=== PATIENT | female | born 1970 | race Caucasian/White ===

== ENCOUNTER 2017-04-21 11:51 | Inpatient (IN) | payer MEDICAID ==
[2017-04-21] MEDS ORDERED: SOLU-Medrol 125 MG VIAL IVP SCH (13:00)
[2017-04-21] MEDS ORDERED: PHENERGAN INJ 25 MG IV PRN (13:17)
[2017-04-21] MEDS ORDERED: ZOFRAN INJ 4 MG VIAL IVP PRN (13:17)
[2017-04-21] MEDS ORDERED: NS 1/2 1000 ML IV 1,000 ML IV ONE (13:23)
[2017-04-21] MEDS ORDERED: SALINE 3% 15 ML NEB TX ONE (13:27)
[2017-04-21] MEDS: NS 1/2 1000 ML IV 1,000 ML IV SCH (13:37)
[2017-04-21] MEDS: ROBITUSSIN DM PO SCH ×3 (13:37→21:11)
[2017-04-21] MEDS: ZOSYN VIAL 4.5 GM 4.5 GM in NS 100 ML IV + SPIKE MINIBAG* 100 ML IV SCH ×2 (13:38→21:11)
[2017-04-21] MEDS: TYLENOL 325 MG TAB PO PRN (13:40)
[2017-04-21 13:53] LABS: BASOPHILS # (AUTO) 0.1 X10^3/uL (0.0-0.1); BASOPHILS % (AUTO) 0.5 % (0.2-1.0); BLOOD UREA NITROGEN 12 mg/dL (7-18); CALCIUM 8.2 mg/dL (8.5-10.1); CARBON DIOXIDE 30.1 mmol/L (21-32); CHLORIDE 103 mmol/L (98-107); CREATININE 0.81 mg/dL (0.55-1.02); EOSINOPHILS # (AUTO) 0.2 x10^3/uL (0.0-0.2); EOSINOPHILS % (AUTO) 1.4 % (0.9-2.9); GLUCOSE 91 mg/dL (65-99); HEMATOCRIT 37.5 % (36.0-47.0); LYMPHOCYTES # (AUTO) 4.2 X10^3/uL (1.3-2.9); LYMPHOCYTES % (AUTO) 33.8 % (21.0-51.0); MEAN CORPUSCULAR HEMOGLOBIN 30.6 pg (27.0-34.0); MEAN CORPUSCULAR HGB CONC 34.7 g/dL (33.0-35.0); MEAN CORPUSCULAR VOLUME 88.2 fL (80.0-100.0); MEAN PLATELET VOLUME 7.8 fL (7.4-11.0); MONOCYTES # (AUTO) 1.1 x10^3/uL (0.3-0.8); MONOCYTES % (AUTO) 9.2 % (0.0-13.0); NEUTROPHILS # (AUTO) 6.8 x10^3/uL (2.2-4.8); NEUTROPHILS % (AUTO) 55.1 % (42.0-75.0); PLATELET COUNT 366 X10^3/uL (150.0-450.0); RED BLOOD COUNT 4.25 X10^6/uL (3.5-5.4); RED CELL DISTRIBUTION WIDTH 12.9 % (11.6-16.5); SODIUM 139 mmol/L (136-145); WHITE BLOOD COUNT 12.3 X10^3/uL (3.6-10.0); eGFR BLACK RACES > 60 (>60); eGFR NON BLACK RACES > 60 (>60)
--- NOTE | 2017-04-21 13:53 | DR.H&P ---
H&P - History & Physical for Day of: H&P Date: 04/21/17 - Chief Complaint Chief Complaint: fever, chills, weakness, cough cold congestion, wheezing - Allergies Allergies/Adverse Reactions: Allergies Allergy/AdvReac Type Severity Reaction Status Date / Time MS Sulfa Antibiotics Allergy Verified 07/22/16 21:13 [Sulfa Antibiotics] - History of Present Illness History of Present Illness: patient is a 46-year-old white female who was a direct admit from Dr. Bonilla's office this morning with the diagnosis of acute bronchitis rule out pneumonia. Patient failed outpatient treatment for bronchitis. Patient was previously treated with doxycycline by mouth and had a Rocephin injection and steroids 2 days of days without any improvement. Patient states she is using albuterol at home and continues with wheezing and shortness of breath. Patient has a past medical history of mild to moderate COPD, hypertension, and arthritis. Plan to admit for IV antibiotics rule out pneumonia with blood and sputum cultures and chest x-ray will repeat a.m. labs and administer respiratory therapy - Past Medical History Past Medical History: Anxiety, Diabetes, Dyslipidemia, Hypertension - Past Surgical History Surgical History: Cholecystectomy, Hysterectomy, Ortho Surgery, Other - Social History Does patient currently use any type of tobacco product: No Have you used tobacco products in the last 12 months: No Type of Tobacco Use: None Alcohol Use: None Drug Use: None - Review of Systems Constitutional: Fever, Chills, Weakness Eyes: No Symptoms Reported ENT: No Symptoms Reported Respiratory: Cough, Shortness of Breath, SOB with Excertion, Wheezing Cardiovascular: No Symptoms Reported Gastrointestinal: Nausea Musculoskeletal: Back Pain Skin: No Symptoms Reported Neurological: No Symptoms Reported - Physical Exam Vital Signs: Temperature 97.9 F Pulse Rate [Left Radial] 72 Pulse Rate 66 Respiratory Rate 20 Blood Pressure [Left Arm] 133/71 Blood Pressure 129/83 O2 Sat by Pulse Oximetry 97 Oriented: Normal Eyes: Normal Ear: Normal Nose: Discharge Throat: Dry Respiratory: Rhonchi Throughout, Wheezes Throughout Cardiovascular: Normal : Normal Auscultation: Bowel Sounds: Normal Palpation: Normal Tenderness: Epigastric Skin: Normal Musculoskeletal: Back:Lumbar Psychiatric: Anxiety Speech Pattern: Clear, Appropriate - Assessment/Plan (1) Bronchitis Status: Acute Plan: admit, follow pneumonia protocol, IV Zosyn and IV Zithromax. Patient reports an allergy allergy to fluoroquinolones. Solu-Medrol IV 80 every 8 hours 3 doses. Respiratory therapy, supplemental O2, IV and oral hydration, blood and sputum cultures on admission, repeat a.m. labs and chest x-ray (2) Depression Qualifiers: Depression Type: D Major depression recurrence: M Active/Remission status : A Major depression episode severity: M Psychotic features: P Trimester: T Status: Chronic Plan: resume home med monitor (3) GERD (gastroesophageal reflux disease) Qualifiers: Esophagitis presence: E Status: Chronic Plan: pepcid (4) Hyperlipidemia Qualifiers: Hyperlipidemia type: H Status: Chronic (5) Hypertension Qualifiers: Hypertension type: H Status: Chronic Plan: resume home meds
[2017-04-21] MEDS ORDERED: PATIENT'S HOME MEDICATION (Hydrocodone-Acetaminophen [Norco] 1 TAB) PO PRN (13:55)
[2017-04-21] MEDS ORDERED: POTASSIUM CHLORIDE LIQ 20 MEQ UDC PO PRN (14:19)
[2017-04-21] MEDS ORDERED: K-RIDER 10 MEQ/NS 100 ML 10 MEQ/100 ML BAG IV PRN (14:19)
[2017-04-21] MEDS ORDERED: K-LYTE EFFERVESCENT PO PRN (14:19)
[2017-04-21 14:26] LABS: ALANINE AMINOTRANSFERASE 24 Units/L (12-78); ALBUMIN 3.6 g/dL (3.4-5.0); ALKALINE PHOSPHATASE 77 Units/L (46-116); ASPARTATE AMINO TRANSFERASE 15 Units/L (15-37)
--- NOTE | 2017-04-21 14:48 | RAD ---
HISTORY: Cough, congestion Study: Chest two-view Comparison: 2015 Findings: The trachea is midline. The cardiac silhouette is unremarkable. The lungs are clear without focal infiltrate or effusion. The bony thorax is unremarkable. IMPRESSION: 1. No acute cardiopulmonary disease. Reported By:
[2017-04-21 15:10] VITALS: BMI 33.2
[2017-04-21] MEDS: NORCO 5/325 MG TAB PO PRN (15:10)
[2017-04-21] MEDS: K-DUR TAB 20 MEQ PO PRN (15:26)
[2017-04-21] MEDS ORDERED: SALINE 3% 15 ML NEB TX NEB ONE (15:28)
[2017-04-21] MEDS: DUONEB 0.5 MG/3 MG NEB SCH ×2 (16:12→20:13)
[2017-04-21] MEDS ORDERED: CITALOPRAM HYDROBROMIDE PO SCH (21:00)
[2017-04-21] MEDS ORDERED: PATIENT'S HOME MEDICATION (Lisinopril [Lisinopril] 1 TAB) PO SCH (21:00)
[2017-04-21] MEDS ORDERED: PATIENT'S HOME MEDICATION (Aspirin [Aspirin] 1 TAB) PO SCH (21:00)
[2017-04-21] MEDS: PROTONIX TAB 40 MG PO SCH (21:11)
[2017-04-21] MEDS: LIPITOR TAB 20 MG PO SCH (21:11)
[2017-04-21] MEDS: ASPIRIN EC 81 MG PO SCH (21:11)
[2017-04-21] MEDS: NEURONTIN CAP 300 MG PO SCH (23:10)
[2017-04-21] MEDS: DESYREL PO SCH (23:10)
[2017-04-21] MEDS: ZESTRIL TAB 10 MG PO SCH (23:11)
[2017-04-21] MEDS: NORVASC TAB 5 MG PO SCH (23:11)
[2017-04-21] MEDS: SOLU-Medrol 125 MG VIAL IVP SCH (23:14)
[2017-04-22] MEDS: DUONEB 0.5 MG/3 MG NEB SCH ×6 (00:43→20:23)
[2017-04-22] MEDS ORDERED: NS 1/2 1000 ML IV 1,000 ML IV ONE ×2 (02:35→11:13)
[2017-04-22] MEDS: NS 1/2 1000 ML IV 1,000 ML IV SCH ×2 (02:37→17:15)
[2017-04-22] MEDS: NEURONTIN CAP 300 MG PO SCH ×3 (05:20→21:07)
[2017-04-22] MEDS: ZOSYN VIAL 4.5 GM 4.5 GM in NS 100 ML IV + SPIKE MINIBAG* 100 ML IV SCH ×3 (05:20→21:16)
[2017-04-22 05:34] LABS: BASOPHILS % (AUTO) 0.2 % (0.2-1.0); HEMATOCRIT 36.9 % (36.0-47.0); HEMOGLOBIN 12.6 g/dL (12.0-16.0); LYMPHOCYTES # (AUTO) 1.4 X10^3/uL (1.3-2.9); LYMPHOCYTES % (AUTO) 7.4 % (21.0-51.0); MEAN CORPUSCULAR HEMOGLOBIN 30.4 pg (27.0-34.0); MEAN CORPUSCULAR HGB CONC 34.2 g/dL (33.0-35.0); MEAN CORPUSCULAR VOLUME 88.9 fL (80.0-100.0); MONOCYTES # (AUTO) 0.3 x10^3/uL (0.3-0.8); MONOCYTES % (AUTO) 1.8 % (0.0-13.0); NEUTROPHILS # (AUTO) 17.5 x10^3/uL (2.2-4.8); NEUTROPHILS % (AUTO) 90.6 % (42.0-75.0); PLATELET COUNT 369 X10^3/uL (150.0-450.0); RED BLOOD COUNT 4.15 X10^6/uL (3.5-5.4); RED CELL DISTRIBUTION WIDTH 12.7 % (11.6-16.5); WHITE BLOOD COUNT 19.3 X10^3/uL (3.6-10.0)
[2017-04-22 05:46] LABS: ALANINE AMINOTRANSFERASE 24 Units/L (12-78); ALBUMIN 3.4 g/dL (3.4-5.0); ALKALINE PHOSPHATASE 76 Units/L (46-116); ASPARTATE AMINO TRANSFERASE 11 Units/L (15-37); BLOOD UREA NITROGEN 8 mg/dL (7-18); CALCIUM 8.5 mg/dL (8.5-10.1); CARBON DIOXIDE 24.8 mmol/L (21-32); CHLORIDE 108 mmol/L (98-107); COR NA(FOR HYPERGLY) 145 mmol/L (136-145); CREATININE 0.83 mg/dL (0.55-1.02); GLUCOSE 143 mg/dL (65-99); SODIUM 144 mmol/L (136-145); TOTAL PROTEIN 6.9 g/dL (6.4-8.2); eGFR BLACK RACES > 60 (>60); eGFR NON BLACK RACES > 60 (>60)
[2017-04-22] MEDS: SOLU-Medrol 125 MG VIAL IVP SCH ×2 (05:59→21:06)
[2017-04-22 07:21] LABS: BAND NEUTROPHILS % 8 % (0-10); PLATELET MORPHOLOGY COMMENT NORMAL (NORMAL)
[2017-04-22] MEDS: ZITHROMAX INJ 500 MG VIAL 500 MG in NS 250 ML IV 250 ML IV SCH (09:34)
[2017-04-22] MEDS: CELEXA PO SCH (09:35)
[2017-04-22] MEDS: NORCO 5/325 MG TAB PO PRN (09:39)
[2017-04-22] MEDS: ROBITUSSIN DM PO SCH ×4 (09:40→21:08)
[2017-04-22 10:45] LABS: BILIRUBIN,URINE NEGATIVE (NEGATIVE); BLOOD/HEMOGLOBIN,URINE NEGATIVE (NEGATIVE); GLUCOSE, URINE 1+ (NEGATIVE); KETONES,URINE NEGATIVE (NEGATIVE); LEUKOCYTE ESTERASE ,URINE NEGATIVE (NEGATIVE); NITRITES,URINE NEGATIVE (NEGATIVE); PROTEIN,URINE NEGATIVE (NEGATIVE); UROBILINOGEN,URINE NORMAL (NORMAL)
[2017-04-22 10:47] LABS: APPEARANCE,URINE SLIGHTLY HAZY (CLEAR); COLOR,URINE YELLOW (YELLOW)
[2017-04-22 10:55] LABS: BACTERIA,URINE NEGATIVE /HPF (NEGATIVE); RBC,URINE NEGATIVE /HPF (NEGATIVE); SQUAMOUS EPITHELIAL CELL,UR RARE /HPF (NEGATIVE)
[2017-04-22] MEDS ORDERED: NEURONTIN CAP 300 MG PO SCH (14:00)
[2017-04-22] MEDS: K-DUR TAB 20 MEQ PO PRN (14:35)
[2017-04-22] MEDS ORDERED: DESYREL PO SCH (21:00)
[2017-04-22] MEDS: PEPCID 20 MG IV PREMIX* 20 MG/50 ML BAG IV SCH (21:07)
[2017-04-22] MEDS: PROTONIX TAB 40 MG PO SCH (21:07)
[2017-04-22] MEDS: ASPIRIN EC 81 MG PO SCH (21:08)
[2017-04-22] MEDS: LIPITOR TAB 20 MG PO SCH (21:08)
[2017-04-22] MEDS: NORVASC TAB 5 MG PO SCH (21:08)
[2017-04-22] MEDS: DESYREL PO SCH (21:08)
[2017-04-22] MEDS: ZESTRIL TAB 10 MG PO SCH (21:09)
[2017-04-23] MEDS: DUONEB 0.5 MG/3 MG NEB SCH ×6 (00:29→20:36)
[2017-04-23] MEDS: NEURONTIN CAP 300 MG PO SCH ×3 (05:25→21:36)
[2017-04-23] MEDS: ZOSYN VIAL 4.5 GM 4.5 GM in NS 100 ML IV + SPIKE MINIBAG* 100 ML IV SCH ×3 (05:26→21:39)
[2017-04-23] MEDS: NORCO 5/325 MG TAB PO PRN ×3 (05:28→21:36)
[2017-04-23 06:19] LABS: BASOPHILS % (AUTO) 0.2 % (0.2-1.0); HEMATOCRIT 33.4 % (36.0-47.0); HEMOGLOBIN 11.4 g/dL (12.0-16.0); LYMPHOCYTES # (AUTO) 1.6 X10^3/uL (1.3-2.9); MEAN CORPUSCULAR HEMOGLOBIN 30.5 pg (27.0-34.0); MEAN CORPUSCULAR HGB CONC 34.1 g/dL (33.0-35.0); MEAN CORPUSCULAR VOLUME 89.4 fL (80.0-100.0); MEAN PLATELET VOLUME 8.3 fL (7.4-11.0); MONOCYTES # (AUTO) 0.9 x10^3/uL (0.3-0.8); MONOCYTES % (AUTO) 3.9 % (0.0-13.0); NEUTROPHILS # (AUTO) 20.2 x10^3/uL (2.2-4.8); NEUTROPHILS % (AUTO) 88.9 % (42.0-75.0); PLATELET COUNT 352 X10^3/uL (150.0-450.0); RED BLOOD COUNT 3.73 X10^6/uL (3.5-5.4); RED CELL DISTRIBUTION WIDTH 13.2 % (11.6-16.5)
[2017-04-23 06:36] LABS: ALANINE AMINOTRANSFERASE 20 Units/L (12-78); ALBUMIN 3.1 g/dL (3.4-5.0); ALKALINE PHOSPHATASE 76 Units/L (46-116); ASPARTATE AMINO TRANSFERASE 11 Units/L (15-37); BLOOD UREA NITROGEN 9 mg/dL (7-18); CALCIUM 8.3 mg/dL (8.5-10.1); CARBON DIOXIDE 26.4 mmol/L (21-32); CHLORIDE 110 mmol/L (98-107); COR NA(FOR HYPERGLY) 146 mmol/L (136-145); CREATININE 0.66 mg/dL (0.55-1.02); GLUCOSE 122 mg/dL (65-99); SODIUM 145 mmol/L (136-145); TOTAL PROTEIN 6.3 g/dL (6.4-8.2); eGFR BLACK RACES > 60 (>60); eGFR NON BLACK RACES > 60 (>60)
[2017-04-23 06:37] LABS: WHITE BLOOD COUNT 22.7 X10^3/uL (3.6-10.0)
[2017-04-23 06:48] LABS: PLATELET MORPHOLOGY COMMENT NORMAL (NORMAL)
[2017-04-23] MEDS ORDERED: NS 1/2 1000 ML IV 1,000 ML IV ONE (08:31)
[2017-04-23] MEDS: NS 1/2 1000 ML IV 1,000 ML IV SCH (08:47)
[2017-04-23] MEDS: CELEXA PO SCH (08:47)
[2017-04-23] MEDS: SOLU-Medrol 125 MG VIAL IVP SCH ×2 (08:48→21:30)
[2017-04-23] MEDS: ZITHROMAX INJ 500 MG VIAL 500 MG in NS 250 ML IV 250 ML IV SCH (08:48)
[2017-04-23] MEDS: PEPCID 20 MG IV PREMIX* 20 MG/50 ML BAG IV SCH ×2 (08:48→21:30)
[2017-04-23] MEDS: ROBITUSSIN DM PO SCH ×4 (09:00→21:39)
[2017-04-23] MEDS: PROTONIX TAB 40 MG PO SCH (21:36)
[2017-04-23] MEDS: DESYREL PO SCH (21:36)
[2017-04-23] MEDS: ASPIRIN EC 81 MG PO SCH (21:36)
[2017-04-23] MEDS: LIPITOR TAB 20 MG PO SCH (21:36)
--- NOTE | 2017-04-23 21:44 | RAD ---
Chest PA and lateral Indication: Bronchitis. Cough. Comparison: April 21, 2017. Findings: There is no pneumothorax come effusion or consolidation. Heart size is normal. Impression: No acute chest process or change from the prior. Reported By:
[2017-04-24] MEDS: DUONEB 0.5 MG/3 MG NEB SCH ×6 (01:07→21:25)
[2017-04-24] MEDS: NS 1/2 1000 ML IV 1,000 ML IV SCH ×2 (05:05→12:13)
[2017-04-24] MEDS: NEURONTIN CAP 300 MG PO SCH ×3 (05:11→21:04)
[2017-04-24] MEDS: ZOSYN VIAL 4.5 GM 4.5 GM in NS 100 ML IV + SPIKE MINIBAG* 100 ML IV SCH ×3 (05:12→21:02)
[2017-04-24 05:45] LABS: ALANINE AMINOTRANSFERASE 22 Units/L (12-78); ALBUMIN 2.9 g/dL (3.4-5.0); ALKALINE PHOSPHATASE 65 Units/L (46-116); ASPARTATE AMINO TRANSFERASE 10 Units/L (15-37); BLOOD UREA NITROGEN 11 mg/dL (7-18); CALCIUM 8.5 mg/dL (8.5-10.1); CARBON DIOXIDE 29.5 mmol/L (21-32); CHLORIDE 109 mmol/L (98-107); COR CA(FOR HYPOALB) 9.4 mg/dL (8.5-10.1); COR NA(FOR HYPERGLY) 145 mmol/L (136-145); CREATININE 0.78 mg/dL (0.55-1.02); GLUCOSE 122 mg/dL (65-99); SODIUM 144 mmol/L (136-145); TOTAL PROTEIN 6.1 g/dL (6.4-8.2); eGFR BLACK RACES > 60 (>60); eGFR NON BLACK RACES > 60 (>60)
[2017-04-24 06:43] LABS: BASOPHILS % (AUTO) 0.2 % (0.2-1.0); HEMATOCRIT 35.1 % (36.0-47.0); HEMOGLOBIN 11.6 g/dL (12.0-16.0); MEAN CORPUSCULAR HEMOGLOBIN 30.1 pg (27.0-34.0); MEAN CORPUSCULAR HGB CONC 33.1 g/dL (33.0-35.0); MEAN CORPUSCULAR VOLUME 90.9 fL (80.0-100.0); MEAN PLATELET VOLUME 8.2 fL (7.4-11.0); MONOCYTES # (AUTO) 0.7 x10^3/uL (0.3-0.8); MONOCYTES % (AUTO) 3.4 % (0.0-13.0); NEUTROPHILS # (AUTO) 17.3 x10^3/uL (2.2-4.8); NEUTROPHILS % (AUTO) 86.4 % (42.0-75.0); PLATELET COUNT 364 X10^3/uL (150.0-450.0); RED BLOOD COUNT 3.86 X10^6/uL (3.5-5.4); RED CELL DISTRIBUTION WIDTH 13.3 % (11.6-16.5)
[2017-04-24 06:58] LABS: PLATELET MORPHOLOGY COMMENT NORMAL (NORMAL)
[2017-04-24] MEDS: NORCO 5/325 MG TAB PO PRN ×2 (08:10→16:03)
[2017-04-24] MEDS: ROBITUSSIN DM PO SCH ×4 (08:12→21:03)
[2017-04-24] MEDS: PEPCID 20 MG IV PREMIX* 20 MG/50 ML BAG IV SCH ×2 (08:12→21:03)
[2017-04-24] MEDS: CELEXA PO SCH (08:12)
[2017-04-24] MEDS: SOLU-Medrol 125 MG VIAL IVP SCH ×2 (08:13→21:04)
[2017-04-24] MEDS: TUSSIONEX PENNKINETIC SUSP PO PRN (13:17)
[2017-04-24] MEDS: TYLENOL 325 MG TAB PO PRN (13:18)
[2017-04-24] MEDS ORDERED: TORADOL 30 MG VIAL IVP STA (16:05)
[2017-04-24] MEDS ORDERED: BENADRYL INJ 50 MG VIAL IVP ONE (16:05)
[2017-04-24] MEDS ORDERED: NS 1/2 1000 ML IV 1,000 ML IV ONE (16:46)
--- NOTE | 2017-04-24 18:13 | PCM.PROG ---
Progress Note - Progress Note for Day of Date: 04/24/17 - Subjective Subjective: 46 WF ADMITTED ON MONDAY WITH COPD WITH AB. PT CONTINUES TO CO SEVERE COUGH WITH WHEEZING, UNABLE TO PRODUCE SPUTUM, WBC 20K THIS AM, DISCUSSED STEROIDS PROBABLE CAUSE, WILL ADD SMART VEST AND PULMICORT, IV SOLU MEDROL D/C'S. ENCOURAGE PO HYDRATION AMBUALTE PT - Past Medical Family Social History Allergies: Allergies Sulfa (Sulfonamide Antibiotics) Allergy (Verified 04/21/17 15:12) - Review of Systems ROS: No change since H&P - Vital Signs and I&O's Vital Signs: Temperature 97.6 F Pulse Rate [Right Brachial] 90 Pulse Rate [Left Radial] 94 Pulse Rate 100 Respiratory Rate 20 Blood Pressure [Right Arm] 117/64 Blood Pressure [Left Arm] 115/70 Blood Pressure 129/83 O2 Sat by Pulse Oximetry 98 Intake and Output: Intake & Output 04/22/17 04/23/17 04/24/17 04/25/17 11:59 11:59 11:59 11:59 Intake Total 2048 1976 2001 460 Output Total 300 Balance 2049 1676 2001 460 - Physical Exam Oriented: Normal Eyes: Normal Ear: Normal Nose: Discharge Throat: Dry Respiratory: Wheezes, Rhonchi Cardiovascular: Normal : Normal Auscultation: Bowel Sounds: Normal Tenderness: Epigastric Skin: Normal Musculoskeletal: Back:Lumbar Psychiatric: Anxiety Speech Pattern: Clear, Appropriate - Laboratory and Diagnostics Result Diagrams: 04/24/17 05:05 04/24/17 05:05 Labs: 04/21/17 13:34 Blood Blood Culture - Preliminary 04/21/17 13:26 Blood Blood Culture - Preliminary Laboratory WBC 20.0 X10^3/uL (3.6-10.0) H 04/24/17 05:05 RBC 3.86 X10^6/uL (3.5-5.4) 04/24/17 05:05 Hgb 11.6 g/dL (12.0-16.0) L 04/24/17 05:05 Hct 35.1 % (36.0-47.0) L 04/24/17 05:05 MCV 90.9 fL (80.0-100.0) 04/24/17 05:05 MCH 30.1 pg (27.0-34.0) 04/24/17 05:05 MCHC 33.1 g/dL (33.0-35.0) 04/24/17 05:05 RDW 13.3 % (11.6-16.5) 04/24/17 05:05 Plt Count 364 X10^3/uL (150.0-450.0) 04/24/17 05:05 Plt Count Comment Adequate (ADEQUATE) 04/24/17 05:05 MPV 8.2 fL (7.4-11.0) 04/24/17 05:05 Neut % 86.4 % (42.0-75.0) H 04/24/17 05:05 Lymph % 10.0 % (21.0-51.0) L 04/24/17 05:05 [place] % 3.4 % (0.0-13.0) 04/24/17 05:05 Eos % 0.0 % (0.9-2.9) L 04/24/17 05:05 Baso % 0.2 % (0.2-1.0) 04/24/17 05:05 Neut # 17.3 x10^3/uL (2.2-4.8) H 04/24/17 05:05 Lymph # 2.0 X10^3/uL (1.3-2.9) 04/24/17 05:05 [place] # 0.7 x10^3/uL (0.3-0.8) 04/24/17 05:05 Eos # 0.0 x10^3/uL (0.0-0.2) 04/24/17 05:05 Baso # 0.0 X10^3/uL (0.0-0.1) 04/24/17 05:05 Absolute Nucleated RBC 0.1 /100WBC 04/24/17 05:05 Total Counted 100 04/24/17 05:05 Neutrophils % (Manual) 85 % (39-76) H 04/24/17 05:05 Band Neutrophils % 8 % (0-10) 04/22/17 04:40 Lymphocytes % (Manual) 11 % (13-43) L 04/24/17 05:05 Monocytes % (Manual) 4 % (4-9) 04/24/17 05:05 Plt Morphology Comment Normal (NORMAL) 04/24/17 05:05 RBC Morphology Normal (NORMAL) 04/24/17 05:05 Sodium 144 mmol/L (136-145) 04/24/17 05:05 Corrected Sodium 145 mmol/L (136-145) 04/24/17 05:05 Potassium 4.4 mmol/L (3.5-5.1) 04/24/17 05:05 Chloride 109 mmol/L (98-107) H 04/24/17 05:05 Carbon Dioxide 29.5 mmol/L (21-32) 04/24/17 05:05 BUN 11 mg/dL (7-18) 04/24/17 05:05 Creatinine 0.78 mg/dL (0.55-1.02) 04/24/17 05:05 Est GFR (MDRD) Af Amer > 60 (>60) 04/24/17 05:05 Est GFR (MDRD) Non-Af > 60 (>60) 04/24/17 05:05 Glucose 122 mg/dL (65-99) H 04/24/17 05:05 Calcium 8.5 mg/dL (8.5-10.1) 04/24/17 05:05 Corrected Calcium 9.4 mg/dL (8.5-10.1) 04/24/17 05:05 Total Bilirubin 0.10 mg/dL (0.2-1.0) L 04/24/17 05:05 AST 10 Units/L (15-37) L 04/24/17 05:05 ALT 22 Units/L (12-78) 04/24/17 05:05 Alkaline Phosphatase 65 Units/L (46-116) 04/24/17 05:05 Total Protein 6.1 g/dL (6.4-8.2) L 04/24/17 05:05 Albumin 2.9 g/dL (3.4-5.0) L 04/24/17 05:05 Globulin 3.2 g/dL (2.5-4.5) 04/24/17 05:05 Albumin/Globulin Ratio 0.9 Ratio (1.1-2.1) L 04/24/17 05:05 Specimen Type Clean catch urine 04/22/17 10:37 Urine Color Yellow (YELLOW) 04/22/17 10:37 Urine Appearance Slightly hazy (CLEAR) 04/22/17 10:37 Urine pH 6.0 (5.0 - 8.0) 04/22/17 10:37 Ur Specific [place] 1.020 (1.000-1.030) 04/22/17 10:37 Urine Protein Negative (NEGATIVE) 04/22/17 10:37 Urine Glucose (UA) 1+ (NEGATIVE) 04/22/17 10:37 Urine Ketones Negative (NEGATIVE) 04/22/17 10:37 Urine Occult Blood Negative (NEGATIVE) 04/22/17 10:37 Urine Nitrite Negative (NEGATIVE) 04/22/17 10:37 Urine Bilirubin Negative (NEGATIVE) 04/22/17 10:37 Urine Urobilinogen Normal (NORMAL) 04/22/17 10:37 Ur Leukocyte Esterase Negative (NEGATIVE) 04/22/17 10:37 Urine RBC Negative /HPF (NEGATIVE) 04/22/17 10:37 Urine WBC Rare /HPF (NEGATIVE) 04/22/17 10:37 Ur Squamous Epith Cells Rare /HPF (NEGATIVE) 04/22/17 10:37 Urine Bacteria Negative /HPF (NEGATIVE) 04/22/17 10:37 Ur Culture Indicated? No/not indicated 04/22/17 10:37 - Plan (1) Bronchitis Status: Acute Plan: SPUTUM COLLECTION, RESP CARE, SUPPLEMENTAL O2. IV ATBX, PULMICORT AND SMART VEST. REPEAT AM LABS (2) Depression Status: Chronic Qualifiers: Depression Type: D Major depression recurrence: M Active/Remission status : A Major depression episode severity: M Psychotic features: P Trimester: T Plan: resume home med monitor (3) GERD (gastroesophageal reflux disease) Status: Chronic Qualifiers: Esophagitis presence: E Plan: pepcid (4) Hyperlipidemia Status: Chronic Qualifiers: Hyperlipidemia type: H (5) Hypertension Status: Chronic Qualifiers: Hypertension type: H Plan: resume home meds
[2017-04-24] MEDS: PROTONIX TAB 40 MG PO SCH (21:04)
[2017-04-24] MEDS: LIPITOR TAB 20 MG PO SCH (21:04)
[2017-04-24] MEDS: ASPIRIN EC 81 MG PO SCH (21:04)
[2017-04-24] MEDS: DESYREL PO SCH (21:04)
[2017-04-24] MEDS: PULMICORT NEB TX 0.5 MG NEB SCH (21:25)
[2017-04-24] MEDS: NORCO 10/325 TAB PO PRN (22:43)
[2017-04-25] MEDS: DUONEB 0.5 MG/3 MG NEB SCH ×6 (01:14→20:16)
[2017-04-25] MEDS: NS 1/2 1000 ML IV 1,000 ML IV SCH ×2 (02:33→16:32)
[2017-04-25] MEDS: ZOSYN VIAL 4.5 GM 4.5 GM in NS 100 ML IV + SPIKE MINIBAG* 100 ML IV SCH ×3 (05:45→21:23)
[2017-04-25] MEDS: NEURONTIN CAP 300 MG PO SCH ×3 (05:45→21:24)
[2017-04-25 06:02] LABS: BASOPHILS % (AUTO) 0.1 % (0.2-1.0); HEMATOCRIT 34.3 % (36.0-47.0); HEMOGLOBIN 11.6 g/dL (12.0-16.0); LYMPHOCYTES # (AUTO) 1.7 X10^3/uL (1.3-2.9); LYMPHOCYTES % (AUTO) 9.6 % (21.0-51.0); MEAN CORPUSCULAR HEMOGLOBIN 30.6 pg (27.0-34.0); MEAN CORPUSCULAR HGB CONC 33.9 g/dL (33.0-35.0); MEAN CORPUSCULAR VOLUME 90.3 fL (80.0-100.0); MONOCYTES # (AUTO) 0.8 x10^3/uL (0.3-0.8); MONOCYTES % (AUTO) 4.6 % (0.0-13.0); NEUTROPHILS # (AUTO) 15.3 x10^3/uL (2.2-4.8); NEUTROPHILS % (AUTO) 85.7 % (42.0-75.0); PLATELET COUNT 365 X10^3/uL (150.0-450.0); RED BLOOD COUNT 3.79 X10^6/uL (3.5-5.4); RED CELL DISTRIBUTION WIDTH 13.4 % (11.6-16.5); WHITE BLOOD COUNT 17.9 X10^3/uL (3.6-10.0)
[2017-04-25 06:05] LABS: ALANINE AMINOTRANSFERASE 23 Units/L (12-78); ALBUMIN 2.8 g/dL (3.4-5.0); ALKALINE PHOSPHATASE 68 Units/L (46-116); ASPARTATE AMINO TRANSFERASE 9 Units/L (15-37); BLOOD UREA NITROGEN 15 mg/dL (7-18); CARBON DIOXIDE 29.3 mmol/L (21-32); CHLORIDE 107 mmol/L (98-107); COR NA(FOR HYPERGLY) 144 mmol/L (136-145); CREATININE 0.79 mg/dL (0.55-1.02); GLUCOSE 148 mg/dL (65-99); SODIUM 143 mmol/L (136-145); TOTAL PROTEIN 5.9 g/dL (6.4-8.2); eGFR BLACK RACES > 60 (>60); eGFR NON BLACK RACES > 60 (>60)
[2017-04-25 06:50] LABS: BAND NEUTROPHILS % 3 % (0-10); PLATELET MORPHOLOGY COMMENT NORMAL (NORMAL)
[2017-04-25] MEDS: CELEXA PO SCH (08:37)
[2017-04-25] MEDS: ROBITUSSIN DM PO SCH ×4 (08:38→21:25)
[2017-04-25] MEDS: PEPCID 20 MG IV PREMIX* 20 MG/50 ML BAG IV SCH ×2 (08:38→21:23)
[2017-04-25] MEDS: SOLU-Medrol 125 MG VIAL IVP SCH ×2 (08:38→21:25)
[2017-04-25] MEDS: PULMICORT NEB TX 0.5 MG NEB SCH ×2 (09:31→20:16)
[2017-04-25] MEDS: NORCO 10/325 TAB PO PRN ×2 (13:30→21:25)
[2017-04-25] MEDS ORDERED: NS 1/2 1000 ML IV 1,000 ML IV ONE (16:29)
--- NOTE | 2017-04-25 19:32 | PCM.PROG ---
Progress Note - Progress Note for Day of Date: 04/25/17 - Subjective Subjective: 46 WF ADMITTED ON MONDAY WITH COPD WITH AB. PT CONTINUES TO CO SEVERE COUGH WITH WHEEZING, SPUTUM COLLECTED, WBC IMPROVING,. ENCOURAGE PO HYDRATION AMBUALTE PT - Past Medical Family Social History Past Med/Fam/Surg Hx: No changes since H&P Allergies: Allergies Sulfa (Sulfonamide Antibiotics) Allergy (Verified 04/21/17 15:12) - Review of Systems ROS: No change since H&P - Vital Signs and I&O's Vital Signs: Temperature 98.3 F Pulse Rate [Right Brachial] 86 Pulse Rate [Left Radial] 89 Pulse Rate 92 Respiratory Rate 20 Blood Pressure [Right Arm] 119/59 Blood Pressure [Left Arm] 129/74 Blood Pressure 129/83 O2 Sat by Pulse Oximetry 98 Intake and Output: Intake & Output 04/23/17 04/24/17 04/25/17 04/26/17 11:59 11:59 11:59 11:59 Intake Total 1976 2001 1484 920 Output Total 300 Balance 1676 2001 1484 920 - Physical Exam Oriented: Normal Eyes: Normal Ear: Normal Nose: Discharge Throat: Dry Respiratory: Wheezes, Rhonchi Cardiovascular: Normal : Normal Auscultation: Bowel Sounds: Normal Tenderness: Epigastric Skin: Normal Musculoskeletal: Back:Lumbar Psychiatric: Anxiety Speech Pattern: Clear, Appropriate - Laboratory and Diagnostics Result Diagrams: 04/25/17 04:05 04/25/17 04:05 Labs: 04/24/17 21:45 Sputum - Expectorated Sputum Sputum Culture - Preliminary 04/24/17 21:45 Sputum - Expectorated Sputum - Final 04/21/17 13:34 Blood Blood Culture - Preliminary 04/21/17 13:26 Blood Blood Culture - Preliminary Laboratory WBC 17.9 X10^3/uL (3.6-10.0) H 04/25/17 04:05 RBC 3.79 X10^6/uL (3.5-5.4) 04/25/17 04:05 Hgb 11.6 g/dL (12.0-16.0) L 04/25/17 04:05 Hct 34.3 % (36.0-47.0) L 04/25/17 04:05 MCV 90.3 fL (80.0-100.0) 04/25/17 04:05 MCH 30.6 pg (27.0-34.0) 04/25/17 04:05 MCHC 33.9 g/dL (33.0-35.0) 04/25/17 04:05 RDW 13.4 % (11.6-16.5) 04/25/17 04:05 Plt Count 365 X10^3/uL (150.0-450.0) 04/25/17 04:05 Plt Count Comment Adequate (ADEQUATE) 04/25/17 04:05 MPV 8.0 fL (7.4-11.0) 04/25/17 04:05 Neut % 85.7 % (42.0-75.0) H 04/25/17 04:05 Lymph % 9.6 % (21.0-51.0) L 04/25/17 04:05 [place] % 4.6 % (0.0-13.0) 04/25/17 04:05 Eos % 0.0 % (0.9-2.9) L 04/25/17 04:05 Baso % 0.1 % (0.2-1.0) L 04/25/17 04:05 Neut # 15.3 x10^3/uL (2.2-4.8) H 04/25/17 04:05 Lymph # 1.7 X10^3/uL (1.3-2.9) 04/25/17 04:05 [place] # 0.8 x10^3/uL (0.3-0.8) 04/25/17 04:05 Eos # 0.0 x10^3/uL (0.0-0.2) 04/25/17 04:05 Baso # 0.0 X10^3/uL (0.0-0.1) 04/25/17 04:05 Absolute Nucleated RBC 0.0 /100WBC 04/25/17 04:05 Total Counted 100 04/25/17 04:05 Neutrophils % (Manual) 81 % (39-76) H 04/25/17 04:05 Band Neutrophils % 3 % (0-10) 04/25/17 04:05 Lymphocytes % (Manual) 12 % (13-43) L 04/25/17 04:05 Monocytes % (Manual) 4 % (4-9) 04/25/17 04:05 Plt Morphology Comment Normal (NORMAL) 04/25/17 04:05 RBC Morphology Normal (NORMAL) 04/25/17 04:05 Sodium 143 mmol/L (136-145) 04/25/17 04:05 Corrected Sodium 144 mmol/L (136-145) 04/25/17 04:05 Potassium 3.8 mmol/L (3.5-5.1) 04/25/17 04:05 Chloride 107 mmol/L (98-107) 04/25/17 04:05 Carbon Dioxide 29.3 mmol/L (21-32) 04/25/17 04:05 BUN 15 mg/dL (7-18) 04/25/17 04:05 Creatinine 0.79 mg/dL (0.55-1.02) 04/25/17 04:05 Est GFR (MDRD) Af Amer > 60 (>60) 04/25/17 04:05 Est GFR (MDRD) Non-Af > 60 (>60) 04/25/17 04:05 Glucose 148 mg/dL (65-99) H 04/25/17 04:05 Calcium 8.0 mg/dL (8.5-10.1) L 04/25/17 04:05 Corrected Calcium 9.0 mg/dL (8.5-10.1) 04/25/17 04:05 Total Bilirubin 0.20 mg/dL (0.2-1.0) 04/25/17 04:05 AST 9 Units/L (15-37) L 04/25/17 04:05 ALT 23 Units/L (12-78) 04/25/17 04:05 Alkaline Phosphatase 68 Units/L (46-116) 04/25/17 04:05 Total Protein 5.9 g/dL (6.4-8.2) L 04/25/17 04:05 Albumin 2.8 g/dL (3.4-5.0) L 04/25/17 04:05 Globulin 3.1 g/dL (2.5-4.5) 04/25/17 04:05 Albumin/Globulin Ratio 0.9 Ratio (1.1-2.1) L 04/25/17 04:05 Specimen Type Clean catch urine 04/22/17 10:37 Urine Color Yellow (YELLOW) 04/22/17 10:37 Urine Appearance Slightly hazy (CLEAR) 04/22/17 10:37 Urine pH 6.0 (5.0 - 8.0) 04/22/17 10:37 Ur Specific [place] 1.020 (1.000-1.030) 04/22/17 10:37 Urine Protein Negative (NEGATIVE) 04/22/17 10:37 Urine Glucose (UA) 1+ (NEGATIVE) 04/22/17 10:37 Urine Ketones Negative (NEGATIVE) 04/22/17 10:37 Urine Occult Blood Negative (NEGATIVE) 04/22/17 10:37 Urine Nitrite Negative (NEGATIVE) 04/22/17 10:37 Urine Bilirubin Negative (NEGATIVE) 04/22/17 10:37 Urine Urobilinogen Normal (NORMAL) 04/22/17 10:37 Ur Leukocyte Esterase Negative (NEGATIVE) 04/22/17 10:37 Urine RBC Negative /HPF (NEGATIVE) 04/22/17 10:37 Urine WBC Rare /HPF (NEGATIVE) 04/22/17 10:37 Ur Squamous Epith Cells Rare /HPF (NEGATIVE) 04/22/17 10:37 Urine Bacteria Negative /HPF (NEGATIVE) 04/22/17 10:37 Ur Culture Indicated? No/not indicated 04/22/17 10:37 - Plan (1) Bronchitis Status: Acute Plan: SPUTUM PEDNING, RESP CARE, SUPPLEMENTAL O2. IV ATBX, PULMICORT AND SMART VEST. REPEAT AM LABS, DISCUSSED DC HOME ON MONDAY (2) Depression Status: Chronic Qualifiers: Depression Type: D Major depression recurrence: M Active/Remission status : A Major depression episode severity: M Psychotic features: P Trimester: T Plan: resume home med monitor (3) GERD (gastroesophageal reflux disease) Status: Chronic Qualifiers: Esophagitis presence: E Plan: pepcid (4) Hyperlipidemia Status: Chronic Qualifiers: Hyperlipidemia type: H (5) Hypertension Status: Chronic Qualifiers: Hypertension type: H Plan: resume home meds
[2017-04-25] MEDS: LIPITOR TAB 20 MG PO SCH (21:24)
[2017-04-25] MEDS: DESYREL PO SCH (21:24)
[2017-04-25] MEDS: ASPIRIN EC 81 MG PO SCH (21:24)
[2017-04-25] MEDS: PROTONIX TAB 40 MG PO SCH (21:24)
[2017-04-26] MEDS: DUONEB 0.5 MG/3 MG NEB SCH ×3 (00:52→09:15)
[2017-04-26] MEDS ORDERED: NS 1/2 1000 ML IV 1,000 ML IV ONE (05:38)
[2017-04-26 05:46] LABS: BASOPHILS # (AUTO) 0.1 X10^3/uL (0.0-0.1); BASOPHILS % (AUTO) 0.3 % (0.2-1.0); HEMATOCRIT 35.1 % (36.0-47.0); HEMOGLOBIN 11.7 g/dL (12.0-16.0); LYMPHOCYTES # (AUTO) 1.9 X10^3/uL (1.3-2.9); LYMPHOCYTES % (AUTO) 10.3 % (21.0-51.0); MEAN CORPUSCULAR HEMOGLOBIN 30.3 pg (27.0-34.0); MEAN CORPUSCULAR HGB CONC 33.5 g/dL (33.0-35.0); MEAN CORPUSCULAR VOLUME 90.7 fL (80.0-100.0); MEAN PLATELET VOLUME 8.2 fL (7.4-11.0); MONOCYTES # (AUTO) 0.8 x10^3/uL (0.3-0.8); MONOCYTES % (AUTO) 4.5 % (0.0-13.0); NEUTROPHILS # (AUTO) 15.3 x10^3/uL (2.2-4.8); NEUTROPHILS % (AUTO) 84.9 % (42.0-75.0); PLATELET COUNT 362 X10^3/uL (150.0-450.0); RED BLOOD COUNT 3.87 X10^6/uL (3.5-5.4); RED CELL DISTRIBUTION WIDTH 13.2 % (11.6-16.5)
[2017-04-26 05:53] LABS: ALANINE AMINOTRANSFERASE 24 Units/L (12-78); ALBUMIN 2.8 g/dL (3.4-5.0); ALKALINE PHOSPHATASE 70 Units/L (46-116); ASPARTATE AMINO TRANSFERASE 10 Units/L (15-37); BLOOD UREA NITROGEN 16 mg/dL (7-18); CALCIUM 8.1 mg/dL (8.5-10.1); CARBON DIOXIDE 31.6 mmol/L (21-32); CHLORIDE 108 mmol/L (98-107); COR CA(FOR HYPOALB) 9.1 mg/dL (8.5-10.1); COR NA(FOR HYPERGLY) 144 mmol/L (136-145); CREATININE 0.79 mg/dL (0.55-1.02); GLUCOSE 132 mg/dL (65-99); SODIUM 143 mmol/L (136-145); TOTAL PROTEIN 5.9 g/dL (6.4-8.2); eGFR BLACK RACES > 60 (>60); eGFR NON BLACK RACES > 60 (>60)
[2017-04-26] MEDS: NS 1/2 1000 ML IV 1,000 ML IV SCH (05:53)
[2017-04-26] MEDS: ZOSYN VIAL 4.5 GM 4.5 GM in NS 100 ML IV + SPIKE MINIBAG* 100 ML IV SCH ×2 (05:53→15:14)
[2017-04-26] MEDS: NEURONTIN CAP 300 MG PO SCH (05:53)
[2017-04-26 06:31] LABS: PLATELET MORPHOLOGY COMMENT NORMAL (NORMAL)
[2017-04-26] MEDS: PEPCID 20 MG IV PREMIX* 20 MG/50 ML BAG IV SCH (08:21)
[2017-04-26] MEDS: ROBITUSSIN DM PO SCH (08:21)
[2017-04-26] MEDS: CELEXA PO SCH (08:21)
[2017-04-26] MEDS: TUSSIONEX PENNKINETIC SUSP PO PRN (08:25)
[2017-04-26] MEDS: NORCO 10/325 TAB PO PRN (08:25)
[2017-04-26] MEDS: PULMICORT NEB TX 0.5 MG NEB SCH (09:15)
[2017-04-26 12:48] VITALS: BP 118/62
== END 2017-04-26 15:09 | disposition home or self-care (01) | DRG 203 ==
LOC: MED/SURG 11:51
PROVIDERS: ADMIT Internal Medicine; ATTEND Internal Medicine
DX: J20.9 Acute bronchitis, unspecified (principal); B95.62 Methicillin resistant Staphylococcus aureus infection as the cause of diseases classified elsewhere; K21.9 Gastro-esophageal reflux disease without esophagitis; E78.5 Hyperlipidemia, unspecified; I10 Essential (primary) hypertension
CPT/HCPCS: 36415; 71020; 80053; 81001; 84132; 85025; 87040; 87070; 87077; 87186; 87205; 94640; 94669; 94760; A4222; S0028; J0456; J1200; J1885; J2405; J2543; J2930; J7620; J7626

== ENCOUNTER 2017-05-02 16:02 | Observation (INO) | payer MEDICAID ==
[2017-05-02] MEDS ORDERED: NS 1000 ML 1,000 ML ONE (16:10)
[2017-05-02] MEDS: NS 1000 ML 1,000 ML IV SCH (16:20)
[2017-05-02] MEDS: ZOFRAN INJ 4 MG VIAL IVP PRN ×2 (16:22→22:28)
[2017-05-02] MEDS ORDERED: PEPCID 20 MG IV PREMIX* 20 MG/50 ML BAG IV ONE (16:30)
[2017-05-02] MEDS ORDERED: BENADRYL INJ 50 MG VIAL IVP ONE (16:30)
[2017-05-02 16:35] LABS: ABG BASE EXCESS 2.9 mmol/L (-2.0-2.0); ABG HCO3 24.8 mmol/L (22-26)
[2017-05-02] MEDS ORDERED: SOLU-Medrol 40 MG VIAL IVP ONE (16:35)
[2017-05-02 17:07] LABS: BASOPHILS # (AUTO) 0.1 X10^3/uL (0.0-0.1); BASOPHILS % (AUTO) 0.8 % (0.2-1.0); EOSINOPHILS # (AUTO) 0.5 x10^3/uL (0.0-0.2); EOSINOPHILS % (AUTO) 3.3 % (0.9-2.9); HEMATOCRIT 38.5 % (36.0-47.0); HEMOGLOBIN 13.3 g/dL (12.0-16.0); LYMPHOCYTES # (AUTO) 2.5 X10^3/uL (1.3-2.9); LYMPHOCYTES % (AUTO) 18.1 % (21.0-51.0); MEAN CORPUSCULAR HGB CONC 34.6 g/dL (33.0-35.0); MEAN CORPUSCULAR VOLUME 89.7 fL (80.0-100.0); MEAN PLATELET VOLUME 7.7 fL (7.4-11.0); MONOCYTES # (AUTO) 1.1 x10^3/uL (0.3-0.8); MONOCYTES % (AUTO) 8.1 % (0.0-13.0); NEUTROPHILS # (AUTO) 9.6 x10^3/uL (2.2-4.8); NEUTROPHILS % (AUTO) 69.7 % (42.0-75.0); PLATELET COUNT 398 X10^3/uL (150.0-450.0); RED BLOOD COUNT 4.29 X10^6/uL (3.5-5.4); RED CELL DISTRIBUTION WIDTH 13.3 % (11.6-16.5); WHITE BLOOD COUNT 13.8 X10^3/uL (3.6-10.0)
[2017-05-02 17:17] LABS: ALANINE AMINOTRANSFERASE 26 Units/L (12-78); ALBUMIN 3.6 g/dL (3.4-5.0); ALKALINE PHOSPHATASE 87 Units/L (46-116); ASPARTATE AMINO TRANSFERASE 14 Units/L (15-37); BLOOD UREA NITROGEN 16 mg/dL (7-18); CALCIUM 9.2 mg/dL (8.5-10.1); CHLORIDE 104 mmol/L (98-107); CREATININE 0.89 mg/dL (0.55-1.02); GLUCOSE 105 mg/dL (65-99); SODIUM 140 mmol/L (136-145); TOTAL PROTEIN 7.3 g/dL (6.4-8.2); eGFR BLACK RACES > 60 (>60); eGFR NON BLACK RACES > 60 (>60)
[2017-05-02] MEDS ORDERED: K-DUR TAB 20 MEQ PO PRN (17:24)
[2017-05-02] MEDS ORDERED: POTASSIUM CHLORIDE LIQ 20 MEQ UDC PO PRN (17:24)
[2017-05-02] MEDS ORDERED: K-LYTE EFFERVESCENT PO PRN (17:24)
[2017-05-02] MEDS ORDERED: K-RIDER 10 MEQ/NS 100 ML 10 MEQ/100 ML BAG IV PRN (17:24)
[2017-05-02 17:25] LABS: CKMB % 2.6 % (<4); CREATINE KINASE 38 Units/L (26-192); CREATINE KINASE MB < 1.0 ng/mL (0-4.0); TROPONIN I < 0.02 ng/mL (0-1.5)
--- NOTE | 2017-05-02 17:51 | DR.H&P ---
H&P - History & Physical for Day of: H&P Date: 05/02/17 - Chief Complaint Chief Complaint: N/V WEAKNESS, SHAKING, MOUTH BLISTERS - Allergies Allergies/Adverse Reactions: Allergies Allergy/AdvReac Type Severity Reaction Status Date / Time Sulfa (Sulfonamide Allergy Verified 04/21/17 15:12 Antibiotics) - History of Present Illness History of Present Illness: 47 WF DIRECT ADMIT FROM DR CEBALLOS OFFICE AFTER PRESENTING WITH N/V, WEAKNESS CO BLISTERS IN MOUTH. PT STATES SHE CANNOT EAT, SEVERE RIGHT FLANK PAIN. PT WAS D/C FROM [facility] LAST WEEK AFTER BEING TREATED FOR COPD WITH AB, PT HAD SPUTUM POS MRSA, PT WAS GIVEN DOXY AND RIFAMPIN. PT HAD RX FOR GENERIC BACTRIM AND WAS TAKING ALSO, PT HAS SULFA ALLERGY. PT WAS DIRECT ADMIT TO ICU FOR TREATMENT OF POSSIBLE MEDICATION REACTION. PT TELEMETRY, EKG, CARDIAC ENZYMES, CXR, IV BENADRYL, SOLU MEDROL AND PEPCID STAT. ABG. REPEAT SPUTUM AND RESP THERAPY - Past Medical History Past Medical History: Anxiety, Diabetes, Dyslipidemia, Hypertension - Past Surgical History Surgical History: Cholecystectomy, Hysterectomy, Ortho Surgery, Other - Social History Does patient currently use any type of tobacco product: No Have you used tobacco products in the last 12 months: No Type of Tobacco Use: None Does any household member use tobacco: No Alcohol Use: None Drug Use: None - Review of Systems Constitutional: Chills, Sweats, Weakness, Malaise Eyes: No Symptoms Reported ENT: Mouth Pain Respiratory: Cough, SOB with Excertion, Wheezing Cardiovascular: No Symptoms Reported Gastrointestinal: Nausea, Vomiting, Abdominal Pain (RIGHT FLANK PAIN), Diarrhea Genitourinary: No Symptoms Reported Musculoskeletal: Back Pain, Leg Pain Skin: No Symptoms Reported Neurological: No Symptoms Reported - Physical Exam Vital Signs: Temperature 98.7 F Pulse Rate [Right Brachial] 77 Respiratory Rate 22 Blood Pressure [Right Arm] 112/65 Blood Pressure [Left Arm] 118/62 Blood Pressure 118/62 O2 Sat by Pulse Oximetry 96 Oriented: Normal Eyes: Normal Ear: Normal Nose: Normal Throat: Dry Respiratory: Rhonchi Throughout Cardiovascular: Normal : Normal Auscultation: Bowel Sounds: Increased Tenderness: Other (RIGHT FLANK) Skin: Decreased [place] Musculoskeletal: Back:Lumbar Psychiatric: Anxiety Affect: Anxious Speech Pattern: Clear, Appropriate - Assessment/Plan (1) Syncope Qualifiers: Syncope type: S Encounter type: E Status: Acute Plan: ADMIT ICU, CARDIAC MONITORING, EKG CHEST XRAY. CARDIAC EZYMES, RESP CONSULT (2) Medication reaction Qualifiers: Encounter type: E Status: Acute Plan: BENADRYL 25 IV, PEPCID IV, SOLU MEDROL 80MG IV X 1 DOSE. NO SULFA DRUGS! MAGIC MOUTHWASH QID (3) Bronchitis Status: Acute Plan: HX SPUTUM POSITIVE FOR MRSA, REPEAT SPUTUM CONTACT PRECAUTIONS. RESP CONSULT, MAY CONTINUE RIFAMPIN. IV HYDRATION, JET NEBS (4) Hypertension Qualifiers: Hypertension type: H Status: Chronic
[2017-05-02 17:52] VITALS: BMI 31.4
[2017-05-02] MEDS: MAGIC MOUTHWASH MT PRN (22:28)
[2017-05-02] MEDS: NORCO 5/325 MG TAB PO PRN (22:28)
[2017-05-03 00:22] LABS: BILIRUBIN,URINE 2+ (NEGATIVE); BLOOD/HEMOGLOBIN,URINE 2+ (NEGATIVE); GLUCOSE, URINE NEGATIVE (NEGATIVE); KETONES,URINE NEGATIVE (NEGATIVE); LEUKOCYTE ESTERASE ,URINE 1+ (NEGATIVE); NITRITES,URINE NEGATIVE (NEGATIVE); PROTEIN,URINE 2+ (NEGATIVE); UROBILINOGEN,URINE 1+ (NORMAL)
[2017-05-03 00:57] LABS: AMORPHOUS SEDIMENT,UR 2+ /HPF (NEGATIVE); APPEARANCE,URINE SLIGHTLY HAZY (CLEAR); BACTERIA,URINE TRACE /HPF (NEGATIVE); COLOR,URINE AMBER (YELLOW); SQUAMOUS EPITHELIAL CELL,UR FEW /HPF (NEGATIVE)
[2017-05-03] MEDS: NS 1000 ML 1,000 ML IV SCH ×2 (03:30→06:03)
[2017-05-03] MEDS: NORCO 5/325 MG TAB PO PRN (04:46)
[2017-05-03] MEDS: MAGIC MOUTHWASH MT PRN ×2 (04:46→15:04)
[2017-05-03 07:14] LABS: BASOPHILS # (AUTO) 0.2 X10^3/uL (0.0-0.1); BASOPHILS % (AUTO) 1.5 % (0.2-1.0); EOSINOPHILS # (AUTO) 0.2 x10^3/uL (0.0-0.2); EOSINOPHILS % (AUTO) 1.7 % (0.9-2.9); HEMATOCRIT 35.4 % (36.0-47.0); LYMPHOCYTES # (AUTO) 3.3 X10^3/uL (1.3-2.9); LYMPHOCYTES % (AUTO) 29.6 % (21.0-51.0); MEAN CORPUSCULAR HEMOGLOBIN 30.7 pg (27.0-34.0); MEAN CORPUSCULAR HGB CONC 33.9 g/dL (33.0-35.0); MEAN CORPUSCULAR VOLUME 90.6 fL (80.0-100.0); MEAN PLATELET VOLUME 7.4 fL (7.4-11.0); MONOCYTES # (AUTO) 1.2 x10^3/uL (0.3-0.8); MONOCYTES % (AUTO) 10.3 % (0.0-13.0); NEUTROPHILS # (AUTO) 6.3 x10^3/uL (2.2-4.8); NEUTROPHILS % (AUTO) 56.9 % (42.0-75.0); PLATELET COUNT 337 X10^3/uL (150.0-450.0); RED BLOOD COUNT 3.91 X10^6/uL (3.5-5.4); RED CELL DISTRIBUTION WIDTH 13.5 % (11.6-16.5); WHITE BLOOD COUNT 11.1 X10^3/uL (3.6-10.0)
[2017-05-03 07:26] LABS: ALANINE AMINOTRANSFERASE 23 Units/L (12-78); ALBUMIN 3.1 g/dL (3.4-5.0); ALKALINE PHOSPHATASE 71 Units/L (46-116); ASPARTATE AMINO TRANSFERASE 14 Units/L (15-37); BLOOD UREA NITROGEN 18 mg/dL (7-18); CALCIUM 8.3 mg/dL (8.5-10.1); CARBON DIOXIDE 23.4 mmol/L (21-32); CHLORIDE 107 mmol/L (98-107); CREATININE 0.68 mg/dL (0.55-1.02); GLUCOSE 82 mg/dL (65-99); SODIUM 138 mmol/L (136-145); TOTAL PROTEIN 6.3 g/dL (6.4-8.2); eGFR BLACK RACES > 60 (>60); eGFR NON BLACK RACES > 60 (>60)
[2017-05-03] MEDS ORDERED: PATIENT'S HOME MEDICATION (Aspirin [Aspirin] 1 TAB) PO SCH (11:15)
[2017-05-03] MEDS ORDERED: DESYREL PO PRN (11:15)
[2017-05-03] MEDS ORDERED: NEURONTIN CAP 300 MG PO SCH (14:00)
--- NOTE | 2017-05-03 15:07 | CT ---
HISTORY: Right flank pain Study: CT abdomen and pelvis without contrast Comparison: None Technique: Multiple axial images of the abdomen and pelvis were obtained from the lung bases to the pubic symph ysis without a the administration of IV contrast. Sagittal and coronal reformations were provided. Findings: The visualized portions of the lung bases are unremarkable. The liver, spleen, pancreas, kidneys, a nd adrenal glands are unremarkable in their CT appearance. The gallbladder in uterus are surgically absent. There is no abnormal adnexal mass.. No significant mesenteric lymphadenopathy or stranding can be observed. No free fluid or free air is seen within the abdomen. The appendix is normal. No bowel wall thickening or bowel dilatation is present. The colon is unremarkable. Specifically, the re is no diverticulosis noted within the sigmoid colon. There is air in the urinary bladder, probabl y iatrogenic. No bladder mass is demonstrated. The bony structures are grossly intact. IMPRESSION: 1. Negative CT of the abdomen and pelvis. Reported By:
[2017-05-03 17:20] VITALS: BP 117/64
[2017-05-03] MEDS ORDERED: PHENERGAN INJ 25 MG IV ONE (18:03)
[2017-05-03] MEDS ORDERED: TORADOL 30 MG VIAL IVP ONE (18:04)
--- NOTE | 2017-05-03 19:10 | RAD ---
Thoracic spine, three views Indication: Mid back pain. Findings: The upper thoracic spine is partially obscured by superimposed soft and osseous structures . The visualized thoracic spine alignment and vertebral body heights are grossly maintained. There i s mild discogenic degenerative disease of the upper thoracic spine. Impression: Mild upper thoracic spondylosis. No evidence for acute thoracic spine fracture. Reported By:
[2017-05-04] MEDS ORDERED: ASPIRIN EC 81 MG PO SCH (09:00)
[2017-05-04] MEDS ORDERED: ESOMEPRAZOLE MAGNESIUM PO SCH (09:00)
[2017-05-04] MEDS ORDERED: NexIUM PO SCH (09:00)
== END 2017-05-03 19:25 | disposition home or self-care (01) ==
LOC: ICU 16:02
PROVIDERS: ADMIT Internal Medicine; ATTEND Internal Medicine
DX: R55 Syncope and collapse (principal); R06.02 Shortness of breath; J20.8 Acute bronchitis due to other specified organisms; R11.2 Nausea with vomiting, unspecified; R53.1 Weakness; B95.62 Methicillin resistant Staphylococcus aureus infection as the cause of diseases classified elsewhere; D64.89 Other specified anemias; I10 Essential (primary) hypertension; M47.894 Other spondylosis, thoracic region; J44.9 Chronic obstructive pulmonary disease, unspecified; T50.995A Adverse effect of other drugs, medicaments and biological substances, initial encounter; Y92.89 Other specified places as the place of occurrence of the external cause
CPT/HCPCS: 36415; 36600; 71010; 72072; 74176; 80053; 81001; 82550; 82553; 82803; 84132; 84484; 85025; 93005; 93010; A4222; S0028; G0378; J1200; J1885; J2405; J2550; J2920

== ENCOUNTER → 2017-05-25 | Outpatient (CLI) | payer MEDICAID ==
[2017-05-03 17:20] VITALS: BP 117/64
--- NOTE | 2017-05-25 14:20 | MRI ---
MRI thoracic spine without contrast Indication: Mid back pain Technique: Multisequence, multiplanar MR images of the thoracic spine were obtained without IV contr ast. Comparison: Radiograph May 03, 2017 Findings: A hemangioma is noted within the T10 vertebral body. Marrow signal and vertebral body heig ht/alignment are otherwise normal. No acute fracture, subluxation or suspicious osseous lesion is id entified. The spinal cord is normal in signal and caliber. The imaged paraspinal soft tissues demons trate no gross, unexpected findings. C7-T1, T1-T2, T2-T3, T3-T4, T4-T5: Unremarkable T5-T6: Mild disc desiccation without disc space narrowing. Otherwise, unremarkable. T6-T7: Mild disk desiccation and anterior left marginal osteophyte formation. Otherwise unremarkable . T7-T8, T8-T9: Mild disk desiccation and prominent anterior marginal osteophyte formation. Otherwise, unremarkable. T9-T10: Mildly prominent anterior and right marginal osteophyte formation. Otherwise unremarkable. T10-T11: Mildly prominent anterior marginal osteophyte formation and mild facet arthropathy, otherwi se, unremarkable. T11-T12: Mild circumferential disk bulge, greatest anteriorly and facet arthropathy. Otherwise, unre markable. T12-L1: Unremarkable. Impression: Mild multilevel spondylosis of the mid and lower thoracic spine without high-grade canal or foramina l stenosis identified at any level. Reported By:
== END | disposition home or self-care (01) | DRG 552 ==
LOC: RAD 10:23
PROVIDERS: ATTEND Nurse Practitioner Family
DX: M54.6 Pain in thoracic spine (principal); M47.894 Other spondylosis, thoracic region
CPT/HCPCS: 72146

== ENCOUNTER → 2017-06-05 | Outpatient (CLI) | payer MEDICAID ==
--- NOTE | 2017-06-05 15:47 | RAD ---
HISTORY: Low back pain Study: AP thoracolumbar spine for scoliosis Comparison: None Findings: There is mild thoraco lumbar levoscoliosis convex at T12 with a Scott angle 5.7. No vertebral body a nomalies are identified. The pedicles are intact. IMPRESSION: Mild thoracolumbar levoscoliosis convex at T12 with a Scott angle 5.7. Reported By:
--- NOTE | 2017-06-05 15:53 | RAD ---
HISTORY: Degenerative disc disease Study: Lumbar spine AP, lateral, neutral, flexion, extension Comparison: None Findings: The alignment is normal. The alignment is stable in flexion and extension although it should be noted that for flexion appears limited. The vertebral bodies are of average height. Degenerative disc dise ase is present at L1-2, L4-5, and L5-S1. The pedicles are intact. The paraspinous soft tissues are no rmal. IMPRESSION: Normal alignment stable in flexion and extension. Degenerative disc disease L1-2, L4-5 Reported By:
--- NOTE | 2017-06-05 16:07 | MRI ---
HISTORY: Lumbar spinal stenosis, low back pain, numbness and tingling in lower extremities Study: MRI lumbar spine without contrast Comparison: 07/04/2016 Technique: Multiplanar multi-sequence MRI of the lumbar spine was obtained. Sagittal T1, sagittal T2 , and stir weighted images, axial T1, and axial T2 images were obtained. Findings: The lumbar spine demonstrates normal alignment. focal rounded areas of increased signal within the L5 and L1 vertebral bodies are unchanged favored to represent hemangiomas. There is superior endplate e abilio at L4 suggesting type 1 Modic degenerative endplate changes. The conus of the cord terminates n ormally. The surrounding soft tissues are within normal limits. Vertebral body heights are preserved . There is multilevel disc desiccation present with disc height loss most prominent at L5-S1 and L1-L 2. T12 -- L1: No significant stenosis identified. L1 -- L2: No significant stenosis identified. L2 -- L3: Mild facet degenerative changes. No significant stenosis identified. L3 -- L4: Mild facet degenerative changes. There is a broad-based disc bulge slightly asymmetric to t he left where there is a focal annular tear. There is mild bilateral lateral recess narrowing and mod erate left foraminal stenosis. L4 -- L5: There are facet degenerative changes, worse on the left. There is a central disc bulge and annular tear contributing to mild right foraminal narrowing, and moderate left foraminal narrowing an d lateral recess stenosis. L5 -- S1: There is a broad-based disc bulge and spondylosis present with moderate bilateral foraminal and lateral recess stenosis. IMPRESSION: 1. Chronic degenerative changes as detailed above with moderate foraminal and lateral recess stenosis on the left at L3-L4 and L4-5 and bilaterally at L5-S1. Reported By:
== END | disposition home or self-care (01) | DRG 552 ==
LOC: RAD 14:27
PROVIDERS: ATTEND Neurological Surgery
DX: M48.06 Spinal stenosis, lumbar region (principal); M47.26 Other spondylosis with radiculopathy, lumbar region; M51.36 Other intervertebral disc degeneration, lumbar region
CPT/HCPCS: 72020; 72110; 72148

== ENCOUNTER 2018-03-02 11:34 | Emergency (ER) | payer MEDICAID ==
[2018-03-02 11:40] VITALS: BP 141/90; BMI 32.3
--- NOTE | 2018-03-02 12:17 | DR.EXTPAIN ---
HPI - Time seen Time seen: 12:30 - PCP Primary Care Physician: LIAM LANEP - Complaint/Symptoms Chief Complaint Doctor Comments: History of psoriasis, treathed with topical steroids (triamcinolone) has not helped very much. Chief Complaint:: PT C/O LEFT FOOT BLEEDING AND THAT IT IS INFECTED PSORISIS AND THAT SHE TRIED TO CALL HER PCP AND SHE IS OUT OF TOWN,,BR Self Treatment fo Chief Complaint: SALVE, - Source History Provided: Patient - Mode of arrival Mode of Arrival: Ambulatory - Timing Onset of Chief Complaint: 02/28/18 PMH - PMH Past Medical History: No Past Medical History: Anxiety, Diabetes, Dyslipidemia, Hypertension Past Surgical History: Yes Surgical History: Cholecystectomy, Hysterectomy, Ortho Surgery, Other Past Surgical History Comment: BACK, AND RIGHT KNEE SURGERY , - Family History History of Family Medical Conditions: Yes Family Medical History: Diabetes Mellitus, Cancer, [place], Heart Failure, Hypertension - Social History Does patient currently use any type of tobacco product: Yes Have you used tobacco products in the last 12 months: Yes Type of Tobacco Use: Cigarettes How many years tobacco product used: 10 Does any household member use tobacco: No Alcohol Use: None Do you use any recreational Drugs:: No Lives With: Family Lives Where: Assisted Care - infectious screening In the last 2 months have you had wt loss of >10#?: NO Have you had fever, night sweats or hemotysis?: No Have you traveled outside the country in the last 6 months?: No Isolation: Standard ROS - Review of Systems Eyes: No Symptoms Reported ENTM: No Symptoms Reported Respiratoy: No Symptoms Reported Cardiovascular: No Symptoms Reported Gastrointestinal/Abdominal: No Symptoms Reported Genitourinary: No Symptoms Reported Neurological: No Symptoms Reported Musculoskeletal: Foot (feet rash), Other Integumentary: Rash (feet) Hematologic/Lymphatic: No Symptoms Reported Endocrine: No Symptoms Reported Psychiatric: No Symptoms Reported All Other Systems: Reviewed and Negative PE - Vital Signs Vitals: Temperature 98.0 F Pulse Rate 97 Respiratory Rate 18 Blood Pressure [Right Arm] 117/64 Blood Pressure [Left Arm] 118/62 Blood Pressure 141/90 O2 Sat by Pulse Oximetry 100 - General Limitations: No Limitations General Appearance: Alert, In No Apparent Distress - Head Head Exam: Normal Inspection, Atraumatic - Eyes Eye exam: Normal Appearance, PERRL, EOMI - ENT ENT Exam: Normal Exam - Neck Neck Exam: Normal Inspection, Full ROM - Chest Chest Inspection: Normal Inspection - Respiratory Respiratory Exam: Normal Lung Sounds Bilat Respiratory Exam: Bilateral Clear to Auscultation - Cardiovascular Cardiovascular Exam: Regular Rate, Normal Rhythm - Abdominal Exam Abdominal Exam: Normal Inspection, Normal Bowel Sounds Abdominal Tenderness: negative: RUQ, RLQ, LUQ, LLQ, Epigastrium, Suprapubic, Diffuse, Mild, Moderate, Severe, Other - Extremities Extremities Exam: Normal Inspection, Full ROM - Upper Extremities Shoulder Exam: Normal Inspection Arm Exam: Normal Inspection Elbow Exam: Normal Inspection Forearm Exam: Normal Inspection Hand Exam: Normal Inspection Neuromotor Exam: Normal Exam Neurosensory Exam: Normal Exam Hand Tendon Exam: Flexor Digitorium Profundus (Location) Upper Ext. Vascular Exam: Capillary Refill, Radial Pulse - Lower Extremities Hip/Pelvis Exam: Normal Inspection, Full ROM Upper Leg Exam: Normal Inspection Knee Exam: Normal Inspection Lower Leg Exam: Normal Inspection Ankle Exam: Normal Inspection Foot/Toe Exam: Normal Inspection Neurovascular/Tendon Exam: Normal Capillary Refill Gait Exam: Observed and Normal - Back Back Exam: Normal Inspection, Full ROM - Neurological Neurological Exam: Alert, Oriented X3, CN II-XII Intact - Psychiatric Psychiatric Exam: Normal Affect, Normal Mood - Skin Skin Exam: Warm, Dry, Other (feet: scaly generalized plantar surface, great toe medial erythema) Type of Lesion: Rash - Diagnosis Discharge Problem: Psoriasis, Cellulitis - Discharge Plan Condition: Stable - Follow ups/Referrals Follow ups/Referrals: DIRK NGUYEN [Primary Care Provider] - 3 days - Instructions
== END 2018-03-02 12:56 | disposition home or self-care (01) ==
LOC: ER 11:44
DX: L40.9 Psoriasis, unspecified (principal); L03.90 Cellulitis, unspecified
CPT/HCPCS: 99281

== ENCOUNTER 2023-06-20 10:22 | Observation (INO) ==
[2023-06-20 11:53] VITALS: BMI 36.8
[2023-06-20] MEDS ORDERED: PEPCID TAB 20 MG PO PRN (12:43)
[2023-06-20] MEDS ORDERED: PROVENTIL NEB TX 0.083% 2.5MG/ 3ML NEB PRN (12:54)
[2023-06-20] MEDS ORDERED: ZOFRAN INJ 4 MG VIAL IVP PRN (12:56)
--- NOTE | 2023-06-20 13:19 | DR.H&P ---
H&P - History & Physical for Day of: H&P Date: 06/20/23 - Chief Complaint Chief Complaint: rash all over, sob - History of Present Illness History of Present Illness: PT IS 53 WF, DIRECT ADMIT FROM DR HOLT OFFICE WITH MEDICATION REACTION. PT HAD ONSET OF RASH ~3 WEEKS AGO. PT TOOK PO PREDNISONE, SINGULAIR, PEPCID, TOPICAL TRIAMCINOLONE, IM KENALOG AND BENADRYL WITHOUT IMPROVEMENT. PT CO ONSET AFTER STARTING CHOLESTEROL LOWERING MEDICATION. PT REPORTS NEW ONSET SOB AND FACIAL SWELLING THIS PAST WEEK. - Past Medical History Past Medical History: Arthritis, COPD, Dyslipidemia, GERD - Past Surgical History Surgical History: Cholecystectomy, Hysterectomy - Family History Family Medical History: Cancer, [place], Coronary Artery Disease, Hypertension - Social History Does patient currently use any type of tobacco product: Yes Have you used tobacco products in the last 12 months: Yes Type of Tobacco Use: Cigarettes How many years tobacco product used: 36 Does any household member use tobacco: Yes Alcohol Use: None Drug Use: None - Review of Systems Constitutional: Weakness, Malaise Eyes: No Symptoms Reported ENT: No Symptoms Reported Respiratory: Shortness of Breath Cardiovascular: No Symptoms Reported Gastrointestinal: Nausea Genitourinary: No Symptoms Reported Musculoskeletal: Other (BODY ACHES AND JOINT PAIN) Skin: Rash Neurological: Weakness - Physical Exam Vital Signs: Vital Signs Temperature 97.4 F Temperature 97.4 F Pulse Rate [Brachial] 75 Pulse Rate [Brachial] 75 Respiratory Rate 20 Respiratory Rate 20 Blood Pressure [Right Arm] 133/78 Blood Pressure [Right Arm] 133/78 O2 Sat by Pulse Oximetry 98 O2 Sat by Pulse Oximetry 98 Oriented: Normal Eyes: Normal Ear: Normal Nose: Normal Throat: Dry Respiratory: Wheezes Throughout Cardiovascular: Normal, Edema : Normal Auscultation: Bowel Sounds: Normal Palpation: Normal Tenderness: Normal Skin: Decreased Turgur, Rash (DIFFUSE RED HIVES TO TRUNK, ARMS AND THIGHS), Red Psychiatric: Anxiety Mood Description: Anxious Affect: Anxious Speech Pattern: Clear, Appropriate - Assessment/Plan (1) Medication reaction Status: Acute Plan: ADMIT, ADMISSION. LABS, CXR ON ADMISSION AND RESP SWAB. CRP, SED RATE, JAIR ON ADMISSION. IV HYDRATION, BP CONTROL. IV SOLU MEDROL, BENADRYL, PEPCID AND VERIFY HOME MEDICATIONS. HOLD STATIN, PRN SUPPLEMENTAL O2 (2) Adverse reaction to statin medication Status: Acute (3) Shortness of breath Status: Acute - Allergies Allergies/Adverse Reactions: Allergies Allergy/AdvReac Type Severity Reaction Status Date / Time Sulfa (Sulfonamide Allergy Verified 03/02/18 11:36 Antibiotics) - Medications Home Medications: Home Medications Medication Instructions Recorded Confirmed albuterol sulfate 90 mcg/actuation 2 puff inhalation Q6HR 04/24/22 04/24/22 aerosol inhaler (ProAir HFA) aspirin 81 mg tablet 81 mg PO QDAY 04/24/22 04/24/22 ergocalciferol (vitamin D2) 1,250 1 cap PO QWEEK 04/24/22 04/24/22 mcg (50,000 unit) capsule fludrocortisone 0.1 mg tablet 1 tab PO 2XW 04/24/22 04/24/22 gabapentin 300 mg capsule 1 cap PO TID 04/24/22 04/24/22 omeprazole 20 mg capsule,delayed 1 cap PO BID 04/24/22 04/24/22 release oxycodone-acetaminophen 10 mg-325 1 tab PO BID PRN pain 04/24/22 04/24/22 mg tablet ropinirole 1 mg tablet 1 tab PO QPM 04/24/22 04/24/22 trazodone 150 mg tablet 1 tab PO QPM 04/24/22 04/24/22 Previous Rx's Medication Instructions Recorded diclofenac sodium 75 mg 75 mg PO BID #20 tabs 04/25/22 tablet,delayed release methylprednisolone 4 mg tablets in See Rx Instructions PO .COMPLEX 05/25/22 a dose pack (Medrol (Audi)) COVID #21 ea nirmatrelvir 300 mg (150 mg See Rx Instructions PO .COMPLEX 05/25/22 x2)-ritonavir 100 mg tablet,dose COVID #30 tabs pack (Paxlovid) ondansetron 4 mg disintegrating 4 mg translingual Q6H PRN nausea 05/11/23 tablet and vomiting 3 days #12 tabs
[2023-06-20 13:50] LABS: BASOPHILS % (AUTO) 0.3 % (0.2-1.0); EOSINOPHILS # (AUTO) 0.1 x10^3/uL (0.0-0.2); EOSINOPHILS % (AUTO) 0.7 % (0.9-2.9); HEMOGLOBIN 14.6 g/dL (12.0-16.0); LYMPHOCYTES # (AUTO) 2.3 X10^3/uL (1.3-2.9); LYMPHOCYTES % (AUTO) 15.4 % (21.0-51.0); MEAN CORPUSCULAR HEMOGLOBIN 30.1 pg (27.0-34.0); MEAN CORPUSCULAR HGB CONC 33.3 g/dL (33.0-35.0); MEAN CORPUSCULAR VOLUME 90.4 fL (80.0-100.0); MEAN PLATELET VOLUME 7.7 fL (7.4-11.0); MONOCYTES # (AUTO) 1.1 x10^3/uL (0.3-0.8); MONOCYTES % (AUTO) 7.1 % (0.0-13.0); NEUTROPHILS # (AUTO) 11.4 x10^3/uL (2.2-4.8); NEUTROPHILS % (AUTO) 76.5 % (42.0-75.0); PLATELET COUNT 337 X10^3/uL (150.0-450.0); RED BLOOD COUNT 4.86 X10^6/uL (3.5-5.4); RED CELL DISTRIBUTION WIDTH 13.6 % (11.6-16.5); WHITE BLOOD COUNT 14.9 X10^3/uL (3.6-10.0)
[2023-06-20 14:03] LABS: ALANINE AMINOTRANSFERASE 23 Units/L (12-78); ALBUMIN 3.4 g/dL (3.4-5.0); ALKALINE PHOSPHATASE 107 Units/L (46-116); ASPARTATE AMINO TRANSFERASE 18 Units/L (15-37); BLOOD UREA NITROGEN 9 mg/dL (7-18); CALCIUM 9.2 mg/dL (8.5-10.1); CARBON DIOXIDE 30.7 mmol/L (21-32); CHLORIDE 105 mmol/L (98-107); CREATINE KINASE 64 Units/L (26-192); CREATININE 0.73 mg/dL (0.55-1.02); GLUCOSE 81 mg/dL (65-99); POTASSIUM 4.2 mmol/L (3.5-5.1); SODIUM 142 mmol/L (136-145); TOTAL PROTEIN 7.4 g/dL (6.4-8.2); eGFR NON BLACK RACES > 60 (>60)
[2023-06-20 14:06] LABS: ERYTHROCYTE SEDIMENTATION RATE 36 MM/HOUR (0-20)
[2023-06-20] MEDS ORDERED: MORPHINE SULFATE INJ 2 MG INJ IVP PRN (14:32)
[2023-06-20] MEDS: BENADRYL INJ 50 MG VIAL IVP SCH ×2 (14:35→20:21)
[2023-06-20] MEDS: NS 1,000 ML IV 1,000 ML IV SCH (14:35)
[2023-06-20] MEDS: SOLU-Medrol 40 MG VIAL IVP SCH ×4 (14:36→21:01)
[2023-06-20] MEDS: PROTONIX INJ 40 MG VIAL IVP SCH (14:36)
[2023-06-20 17:00] LABS: BILIRUBIN,URINE NEGATIVE (NEGATIVE); BLOOD/HEMOGLOBIN,URINE NEGATIVE (NEGATIVE); GLUCOSE, URINE NEGATIVE (NEGATIVE); KETONES,URINE NEGATIVE (NEGATIVE); LEUKOCYTE ESTERASE ,URINE NEGATIVE (NEGATIVE); NITRITES,URINE NEGATIVE (NEGATIVE); PROTEIN,URINE NEGATIVE (NEGATIVE); UROBILINOGEN,URINE NORMAL (NORMAL)
--- NOTE | 2023-06-20 17:06 | RAD ---
EXAM:CHEST, 1 VIEWHISTORY:SOB ALLERGIC REATIONCOMPARISON:May 11TECHNIQUE:Portable chest radiographFINDINGS:Heart size and mediastinal contours are normal. Lungs are clear as are the pleural spaces. No free air or pneumothorax. No acute bony abnormality.Multilevel bridging osteophytes of the spine are typical of diffuse idiopathic skeletal hyperostosis. A spinal stimulator is in place.IMPRESSION:No acute radiographic abnormalities of the chestTHIS IS AN ELECTRONICALLY VERIFIED FINAL REPORT06/20/2023 5:02 PM - Electronically signed by Ethan Guzman MD
[2023-06-20 17:13] LABS: APPEARANCE,URINE CLEAR (CLEAR); COLOR,URINE YELLOW (YELLOW)
[2023-06-20 17:20] LABS: ABG ALLEN TEST POS; ABG BASE EXCESS 3.2 mmol/L (-2.0-2.0); ABG HCO3 26.9 mmol/L (22-26)
[2023-06-20] MEDS: VISTARIL PO PRN (17:59)
[2023-06-20] MEDS: REQUIP PO SCH (20:20)
[2023-06-21] MEDS: NS 1,000 ML IV 1,000 ML IV SCH ×2 (00:04→02:05)
[2023-06-21] MEDS: BENADRYL INJ 50 MG VIAL IVP SCH ×3 (04:32→20:31)
[2023-06-21] MEDS: SOLU-Medrol 40 MG VIAL IVP SCH ×2 (05:36→13:54)
[2023-06-21 05:55] LABS: BASOPHILS # (AUTO) 0.1 X10^3/uL (0.0-0.1); BASOPHILS % (AUTO) 0.7 % (0.2-1.0); HEMATOCRIT 40.5 % (36.0-47.0); HEMOGLOBIN 13.6 g/dL (12.0-16.0); LYMPHOCYTES # (AUTO) 1.1 X10^3/uL (1.3-2.9); LYMPHOCYTES % (AUTO) 6.1 % (21.0-51.0); MEAN CORPUSCULAR HEMOGLOBIN 30.1 pg (27.0-34.0); MEAN CORPUSCULAR HGB CONC 33.5 g/dL (33.0-35.0); MEAN CORPUSCULAR VOLUME 89.8 fL (80.0-100.0); MEAN PLATELET VOLUME 7.9 fL (7.4-11.0); MONOCYTES # (AUTO) 0.3 x10^3/uL (0.3-0.8); MONOCYTES % (AUTO) 1.9 % (0.0-13.0); NEUTROPHILS # (AUTO) 16.6 x10^3/uL (2.2-4.8); NEUTROPHILS % (AUTO) 91.3 % (42.0-75.0); PLATELET COUNT 344 X10^3/uL (150.0-450.0); RED BLOOD COUNT 4.51 X10^6/uL (3.5-5.4); RED CELL DISTRIBUTION WIDTH 13.6 % (11.6-16.5); WHITE BLOOD COUNT 18.2 X10^3/uL (3.6-10.0)
[2023-06-21 06:07] LABS: ALANINE AMINOTRANSFERASE 22 Units/L (12-78); ALBUMIN 2.8 g/dL (3.4-5.0); ALKALINE PHOSPHATASE 97 Units/L (46-116); ASPARTATE AMINO TRANSFERASE 10 Units/L (15-37); BLOOD UREA NITROGEN 9 mg/dL (7-18); CALCIUM 8.5 mg/dL (8.5-10.1); CARBON DIOXIDE 25.2 mmol/L (21-32); CHLORIDE 107 mmol/L (98-107); COR CA(FOR HYPOALB) 9.5 mg/dL (8.5-10.1); COR NA(FOR HYPERGLY) 144 mmol/L (136-145); CREATININE 0.75 mg/dL (0.55-1.02); GLUCOSE 163 mg/dL (65-99); POTASSIUM 3.8 mmol/L (3.5-5.1); SODIUM 142 mmol/L (136-145); TOTAL PROTEIN 6.6 g/dL (6.4-8.2); eGFR NON BLACK RACES > 60 (>60)
[2023-06-21 06:28] LABS: BAND NEUTROPHILS % 5 % (0-10)
[2023-06-21 06:29] LABS: PLATELET MORPHOLOGY COMMENT NORMAL (NORMAL)
[2023-06-21] MEDS ORDERED: CONSULT PHARMACY - POTASSIUM & MAGNESIUM XX SCH (07:00)
[2023-06-21] MEDS: PROTONIX INJ 40 MG VIAL IVP SCH (08:18)
[2023-06-21] MEDS ORDERED: K-DUR TAB 20 MEQ PO ONE ×2 (09:00→11:45)
[2023-06-21] MEDS: BACTROBAN TOPICAL OINT TOP SCH ×2 (11:48→21:24)
--- NOTE | 2023-06-21 17:40 | PCM.PROG ---
Progress Note - Progress Note for Day of Date of Exam: 06/21/23 - Subjective Subjective: PT IS 53 WF CURRENTLY BEING TREATED FOR A MEDICATION REACTION TO ATORVASTATIN. PT IS ON IV SOLU MEDROL, BENADRYL, PEPCID, SINGULAIR AND PRN ATARAX FOR ITCHING. PT HAD CO SOB WITH CXR AND ABG OBTAINED ON ADMISSION. PT CONTINUES TO CO OF ITCHING TO TRUNK AND ARMS WITH DIFFUSE HIVES, MODERATELY IMPROVED SINCE ADMISSION. PT HAD ELEVATED CRP, SED RATE AND DDIMER ON ADMISSION. HER REPEAT AM D-DIMER TRENDED DOWN THIS AM. PT HAS BEEN ON ROOM AIR THIS MORNING WITH REPORTS OF IMPROVING SOB BUT FEELS SWOLLEN IN HER FACE, HANDS AND ABDOMEN. WE PLAN TO CONTINUE IV SOLU MEDROL AND ANTIHISTAMINES WITH PRN SUPPLEMENTAL O2. - Past Medical Family Social History Past Med/Fam/Surg Hx: No changes since H&P Allergies: Allergies atorvastatin Allergy (Verified 06/20/23 18:33) Sulfa (Sulfonamide Antibiotics) Allergy (Verified 03/02/18 11:36) - Review of Systems ROS: No change since H&P - Vital Signs and I&O's Vital Signs: Vital Signs Temperature 97.7 F Pulse Rate [Brachial] 94 Respiratory Rate 20 Blood Pressure [Right Arm] 137/74 O2 Sat by Pulse Oximetry 96 Intake and Output: Intake & Output 06/19/23 06/20/23 06/21/23 06/22/23 11:59 11:59 11:59 11:59 Intake Total 2368 / 2368 1178 / 1178 Balance 2368 / 2368 1178 / 1178 - Physical Exam Oriented: Normal Eyes: Normal Ear: Normal Nose: Normal Throat: Dry Respiratory: Diminished Cardiovascular: Normal, Edema : Normal Auscultation: Bowel Sounds: Normal Tenderness: Normal Skin: Decreased Turgur, Rash (DIFFUSE RED HIVES TO TRUNK, ARMS AND THIGHS), Red Psychiatric: Anxiety Mood Description: Anxious Affect: Anxious Speech Pattern: Clear, Appropriate - Laboratory and Diagnostics Result Diagrams: 06/21/23 05:02 06/21/23 05:02 Labs: Laboratory WBC 18.2 X10^3/uL (3.6-10.0) H 06/21/23 05:02 RBC 4.51 X10^6/uL (3.5-5.4) 06/21/23 05:02 Hgb 13.6 g/dL (12.0-16.0) 06/21/23 05:02 Hct 40.5 % (36.0-47.0) 06/21/23 05:02 MCV 89.8 fL (80.0-100.0) 06/21/23 05:02 MCH 30.1 pg (27.0-34.0) 06/21/23 05:02 MCHC 33.5 g/dL (33.0-35.0) 06/21/23 05:02 RDW 13.6 % (11.6-16.5) 06/21/23 05:02 Plt Count 344 X10^3/uL (150.0-450.0) 06/21/23 05:02 Plt Count Comment Adequate (ADEQUATE) 06/21/23 05:02 MPV 7.9 fL (7.4-11.0) 06/21/23 05:02 Neut % (Auto) 91.3 % (42.0-75.0) H 06/21/23 05:02 Lymph % (Auto) 6.1 % (21.0-51.0) L 06/21/23 05:02 [place] % (Auto) 1.9 % (0.0-13.0) 06/21/23 05:02 Eos % (Auto) 0.0 % (0.9-2.9) L 06/21/23 05:02 Baso % (Auto) 0.7 % (0.2-1.0) 06/21/23 05:02 Neut # (Auto) 16.6 x10^3/uL (2.2-4.8) H 06/21/23 05:02 Lymph # (Auto) 1.1 X10^3/uL (1.3-2.9) L 06/21/23 05:02 White # (Auto) 0.3 x10^3/uL (0.3-0.8) 06/21/23 05:02 Eos # (Auto) 0.0 x10^3/uL (0.0-0.2) 06/21/23 05:02 Baso # (Auto) 0.1 X10^3/uL (0.0-0.1) 06/21/23 05:02 Absolute Nucleated RBC 0.0 /100WBC 06/21/23 05:02 Total Counted 100 06/21/23 05:02 Neutrophils % (Manual) 87 % (39-76) H 06/21/23 05:02 Band Neutrophils % 5 % (0-10) 06/21/23 05:02 Lymphocytes % (Manual) 7 % (13-43) L 06/21/23 05:02 Monocytes % (Manual) 1 % (4-9) L 06/21/23 05:02 Plt Morphology Comment Normal (NORMAL) 06/21/23 05:02 RBC Morphology Normal (NORMAL) 06/21/23 05:02 ESR 36 MM/HOUR (0-20) H 06/20/23 13:13 D-Dimer 1.77 ug/ml (0.0-0.57) H 06/21/23 05:02 Sample Site Rra 06/20/23 17:15 ABG pH 7.470 (7.35-7.45) H 06/20/23 17:15 ABG pCO2 37.0 mmHg (35.0-45.0) 06/20/23 17:15 ABG pO2 75.0 mmHg (80.0-100.0) L 06/20/23 17:15 ABG HCO3 26.9 mmol/L (22-26) H 06/20/23 17:15 ABG O2 Saturation 96.0 % (90-100) 06/20/23 17:15 ABG Base Excess 3.2 mmol/L (-2.0-2.0) H 06/20/23 17:15 Rigoberto Test Pos 06/20/23 17:15 A-a Gradient 28.0 mmHg 06/20/23 17:15 FiO2 21.0 06/20/23 17:15 Blood Gas Comments Pt sonam well eb/kg 06/20/23 17:15 Sodium 142 mmol/L (136-145) 06/21/23 05:02 Corrected Sodium 144 mmol/L (136-145) 06/21/23 05:02 Potassium 3.8 mmol/L (3.5-5.1) 06/21/23 05:02 Chloride 107 mmol/L (98-107) 06/21/23 05:02 Carbon Dioxide 25.2 mmol/L (21-32) 06/21/23 05:02 BUN 9 mg/dL (7-18) 06/21/23 05:02 Creatinine 0.75 mg/dL (0.55-1.02) 06/21/23 05:02 Est GFR (MDRD) Af Amer > 60 (>60) 06/21/23 05:02 Est GFR (MDRD) Non-Af > 60 (>60) 06/21/23 05:02 Glucose 163 mg/dL (65-99) H 06/21/23 05:02 Calcium 8.5 mg/dL (8.5-10.1) 06/21/23 05:02 Corrected Calcium 9.5 mg/dL (8.5-10.1) 06/21/23 05:02 Magnesium 2.0 mg/dL (2.0-2.9) 06/21/23 05:02 Total Bilirubin 0.20 mg/dL (0.2-1.0) 06/21/23 05:02 AST 10 Units/L (15-37) L 06/21/23 05:02 ALT 22 Units/L (12-78) 06/21/23 05:02 Alkaline Phosphatase 97 Units/L (46-116) 06/21/23 05:02 Creatine Kinase 64 Units/L (26-192) 06/20/23 13:13 C-Reactive Protein 28.00 mg/L (0-3.0) H 06/20/23 13:13 Total Protein 6.6 g/dL (6.4-8.2) 06/21/23 05:02 Albumin 2.8 g/dL (3.4-5.0) L 06/21/23 05:02 Globulin 3.8 g/dL (2.5-4.5) 06/21/23 05:02 Albumin/Globulin Ratio 0.7 Ratio (1.1-2.1) L 06/21/23 05:02 Specimen Type Clean catch urine 06/20/23 16:35 Urine Color Yellow (YELLOW) 06/20/23 16:35 Urine Appearance Clear (CLEAR) 06/20/23 16:35 Urine pH 8.0 (5.0 - 8.0) 06/20/23 16:35 Ur Specific [place] 1.020 (1.000-1.030) 06/20/23 16:35 Urine Protein Negative (NEGATIVE) 06/20/23 16:35 Urine Glucose (UA) Negative (NEGATIVE) 06/20/23 16:35 Urine Ketones Negative (NEGATIVE) 06/20/23 16:35 Urine Blood Negative (NEGATIVE) 06/20/23 16:35 Urine Nitrite Negative (NEGATIVE) 06/20/23 16:35 Urine Bilirubin Negative (NEGATIVE) 06/20/23 16:35 Urine Urobilinogen Normal (NORMAL) 06/20/23 16:35 Ur Leukocyte Esterase Negative (NEGATIVE) 06/20/23 16:35 SARS-CoV-2 (PCR) Negative (NEGATIVE) 06/20/23 16:20 Influenza Type A (PCR) Negative (NEGATIVE) 06/20/23 16:20 Influenza Type B (PCR) Negative (NEGATIVE) 06/20/23 16:20 RSV (PCR) Negative (NEGATIVE) 06/20/23 16:20 - Plan (1) Medication reaction Status: Acute Plan: LABS, CXR ON ADMISSION AND RESP SWAB. CRP, SED RATE, JAIR ON ADMISSION. IV HYDRATION, BP CONTROL. IV SOLU MEDROL, BENADRYL, PEPCID AND VERIFY HOME MEDICATIONS. HOLD STATIN, PRN SUPPLEMENTAL O2 (2) Adverse reaction to statin medication Status: Acute (3) Shortness of breath Status: Acute
[2023-06-21] MEDS: REQUIP PO SCH (20:31)
[2023-06-22 04:07] VITALS: O2SAT 97
[2023-06-22] MEDS: BENADRYL INJ 50 MG VIAL IVP SCH (05:31)
[2023-06-22 06:27] LABS: BASOPHILS # (AUTO) 0.1 X10^3/uL (0.0-0.1); BASOPHILS % (AUTO) 0.4 % (0.2-1.0); ERYTHROCYTE SEDIMENTATION RATE 14 MM/HOUR (0-20); HEMATOCRIT 38.3 % (36.0-47.0); HEMOGLOBIN 12.6 g/dL (12.0-16.0); LYMPHOCYTES # (AUTO) 2.6 X10^3/uL (1.3-2.9); LYMPHOCYTES % (AUTO) 9.1 % (21.0-51.0); MEAN CORPUSCULAR HEMOGLOBIN 29.6 pg (27.0-34.0); MEAN CORPUSCULAR HGB CONC 32.8 g/dL (33.0-35.0); MEAN PLATELET VOLUME 7.9 fL (7.4-11.0); MONOCYTES # (AUTO) 1.7 x10^3/uL (0.3-0.8); MONOCYTES % (AUTO) 5.8 % (0.0-13.0); NEUTROPHILS # (AUTO) 24.2 x10^3/uL (2.2-4.8); NEUTROPHILS % (AUTO) 84.7 % (42.0-75.0); PLATELET COUNT 330 X10^3/uL (150.0-450.0); RED BLOOD COUNT 4.26 X10^6/uL (3.5-5.4); RED CELL DISTRIBUTION WIDTH 13.7 % (11.6-16.5); WHITE BLOOD COUNT 28.6 X10^3/uL (3.6-10.0)
[2023-06-22 07:07] LABS: ALANINE AMINOTRANSFERASE 18 Units/L (12-78); ALBUMIN 2.7 g/dL (3.4-5.0); ALKALINE PHOSPHATASE 91 Units/L (46-116); ASPARTATE AMINO TRANSFERASE 10 Units/L (15-37); BLOOD UREA NITROGEN 11 mg/dL (7-18); CALCIUM 8.2 mg/dL (8.5-10.1); CARBON DIOXIDE 25.6 mmol/L (21-32); CHLORIDE 110 mmol/L (98-107); COR CA(FOR HYPOALB) 9.2 mg/dL (8.5-10.1); CREATININE 0.73 mg/dL (0.55-1.02); GLUCOSE 92 mg/dL (65-99); MAGNESIUM 2.1 mg/dL (2.0-2.9); SODIUM 144 mmol/L (136-145); eGFR NON BLACK RACES > 60 (>60)
[2023-06-22 07:18] LABS: BAND NEUTROPHILS % 1 % (0-10); PLATELET MORPHOLOGY COMMENT NORMAL (NORMAL)
[2023-06-22] MEDS: PROTONIX INJ 40 MG VIAL IVP SCH (08:23)
[2023-06-22] MEDS ORDERED: SOLU-Medrol 40 MG VIAL IVP SCH (09:00)
[2023-06-22 09:04] VITALS: BP 112/67; PULSE 84; RESP 18; TEMP 97.8
[2023-06-22] MEDS: VISTARIL PO PRN (09:49)
[2023-06-23 14:25] LABS: ANTI-NUCLEAR ANTIBODY TEST None Detected (None Detected)
== END 2023-06-22 10:00 | disposition home or self-care (01) ==
LOC: MED/SURG
PROVIDERS: ADMIT Internal Medicine; ATTEND Internal Medicine
DX: J44.9 Chronic obstructive pulmonary disease, unspecified; L25.1 Unspecified contact dermatitis due to drugs in contact with skin; T46.6X5A Adverse effect of antihyperlipidemic and antiarteriosclerotic drugs, initial encounter; Z20.822 Contact with and (suspected) exposure to COVID-19; K21.9 Gastro-esophageal reflux disease without esophagitis; R06.02 Shortness of breath; Y92.9 Unspecified place or not applicable; E78.2 Mixed hyperlipidemia; L50.8 Other urticaria; R79.82 Elevated C-reactive protein (CRP)

== ENCOUNTER 2023-08-28 10:50 | Inpatient (IN) ==
[2023-08-28 11:58] LABS: BASOPHILS # (AUTO) 0.1 X10^3/uL (0.0-0.1); BASOPHILS % (AUTO) 0.3 % (0.2-1.0); EOSINOPHILS % (AUTO) 0.1 % (0.9-2.9); HEMATOCRIT 43.8 % (36.0-47.0); HEMOGLOBIN 14.4 g/dL (12.0-16.0); LYMPHOCYTES # (AUTO) 1.4 X10^3/uL (1.3-2.9); LYMPHOCYTES % (AUTO) 9.4 % (21.0-51.0); MEAN CORPUSCULAR HEMOGLOBIN 29.7 pg (27.0-34.0); MEAN PLATELET VOLUME 7.4 fL (7.4-11.0); MONOCYTES # (AUTO) 1.8 x10^3/uL (0.3-0.8); MONOCYTES % (AUTO) 12.2 % (0.0-13.0); NEUTROPHILS # (AUTO) 11.6 x10^3/uL (2.2-4.8); PLATELET COUNT 360 X10^3/uL (150.0-450.0); RED BLOOD COUNT 4.86 X10^6/uL (3.5-5.4); RED CELL DISTRIBUTION WIDTH 13.3 % (11.6-16.5); WHITE BLOOD COUNT 14.9 X10^3/uL (3.6-10.0)
[2023-08-28] MEDS ORDERED: MORPHINE SULFATE INJ 2 MG INJ ONE (12:03)
[2023-08-28] MEDS ORDERED: NS 1,000 ML IV 1,000 ML ONE (12:04)
[2023-08-28] MEDS ORDERED: ROCEPHIN VIAL 1 GRAM ONE (12:04)
[2023-08-28] MEDS ORDERED: NS 50 ML IV 50 ML IV ONE (12:05)
[2023-08-28] MEDS ORDERED: MORPHINE SULFATE INJ 2 MG INJ IVP ONE (12:10)
[2023-08-28] MEDS ORDERED: ZOFRAN INJ 4 MG VIAL IVP PRN (12:18)
[2023-08-28] MEDS: ROCEPHIN VIAL 1 GRAM 1 G in NS 100 ML IV 100 ML IV SCH (12:19)
[2023-08-28 12:29] LABS: ALANINE AMINOTRANSFERASE 22 Units/L (12-78); ALBUMIN 3.2 g/dL (3.4-5.0); ALKALINE PHOSPHATASE 99 Units/L (46-116); ASPARTATE AMINO TRANSFERASE 12 Units/L (15-37); BLOOD UREA NITROGEN 9 mg/dL (7-18); CALCIUM 8.7 mg/dL (8.5-10.1); CARBON DIOXIDE 26.3 mmol/L (21-32); CHLORIDE 101 mmol/L (98-107); COR CA(FOR HYPOALB) 9.3 mg/dL (8.5-10.1); COR NA(FOR HYPERGLY) 138 mmol/L (136-145); CREATININE 0.79 mg/dL (0.55-1.02); GLUCOSE 129 mg/dL (65-99); POTASSIUM 3.7 mmol/L (3.5-5.1); SODIUM 137 mmol/L (136-145); TOTAL PROTEIN 7.8 g/dL (6.4-8.2); eGFR NON BLACK RACES > 60 (>60)
[2023-08-28] MEDS: NS 1,000 ML IV 1,000 ML IV SCH (12:37)
[2023-08-28] MEDS: ZITHROMAX INJ 500 MG VIAL 500 MG in D5W 250 ML IV 250 ML IV SCH (13:39)
[2023-08-28] MEDS: NORCO 5/325 MG TAB PO PRN (13:39)
[2023-08-28] MEDS: SOLU-Medrol 40 MG VIAL IVP SCH ×2 (13:39→21:13)
[2023-08-28] MEDS: DUONEB 0.5 MG/3 MG (3 mL) NEB SCH ×2 (16:50→20:10)
[2023-08-28] MEDS: ROBITUSSIN DM PO SCH ×2 (17:14→21:13)
[2023-08-28] MEDS ORDERED: PULMICORT NEB TX 0.5 MG NEB ONE (19:19)
[2023-08-28] MEDS: PULMICORT NEB TX 0.5 MG NEB SCH (20:10)
[2023-08-28] MEDS ORDERED: K-DUR TAB 20 MEQ PO ONE (22:00)
[2023-08-28] MEDS ORDERED: CONSULT PHARMACY - POTASSIUM & MAGNESIUM XX SCH (22:00)
[2023-08-29] MEDS: NS 1,000 ML IV 1,000 ML IV SCH ×3 (00:44→16:28)
[2023-08-29] MEDS: SOLU-Medrol 40 MG VIAL IVP SCH ×3 (05:09→21:14)
[2023-08-29 06:06] LABS: BASOPHILS # (AUTO) 0.1 X10^3/uL (0.0-0.1); BASOPHILS % (AUTO) 0.8 % (0.2-1.0); HEMATOCRIT 40.3 % (36.0-47.0); HEMOGLOBIN 13.1 g/dL (12.0-16.0); LYMPHOCYTES # (AUTO) 1.4 X10^3/uL (1.3-2.9); LYMPHOCYTES % (AUTO) 8.6 % (21.0-51.0); MEAN CORPUSCULAR HEMOGLOBIN 29.4 pg (27.0-34.0); MEAN CORPUSCULAR HGB CONC 32.6 g/dL (33.0-35.0); MEAN CORPUSCULAR VOLUME 90.1 fL (80.0-100.0); MEAN PLATELET VOLUME 7.4 fL (7.4-11.0); MONOCYTES # (AUTO) 0.8 x10^3/uL (0.3-0.8); MONOCYTES % (AUTO) 4.8 % (0.0-13.0); NEUTROPHILS # (AUTO) 14.5 x10^3/uL (2.2-4.8); NEUTROPHILS % (AUTO) 85.8 % (42.0-75.0); PLATELET COUNT 361 X10^3/uL (150.0-450.0); RED BLOOD COUNT 4.47 X10^6/uL (3.5-5.4); RED CELL DISTRIBUTION WIDTH 13.3 % (11.6-16.5); WHITE BLOOD COUNT 16.9 X10^3/uL (3.6-10.0)
--- NOTE | 2023-08-29 06:14 | RAD ---
EXAM:Portable chestHISTORY:RSV, bronchitisCOMPARISON:06/20/2023FINDINGS: Heart size is normal. Rosita are normal. Lung sánchez are clear. No pleural effusions are identified. There is a spinal cord stimulator at the midthoracic level. Bony thorax is unremarkable.IMPRESSION:No significant abnormality identifiedTHIS IS AN ELECTRONICALLY VERIFIED FINAL [id number]/29/2023 6:11 AM - Electronically signed by Luis Moreira MD
[2023-08-29 06:17] LABS: ALANINE AMINOTRANSFERASE 19 Units/L (12-78); ALBUMIN 2.6 g/dL (3.4-5.0); ALKALINE PHOSPHATASE 90 Units/L (46-116); ASPARTATE AMINO TRANSFERASE 9 Units/L (15-37); BLOOD UREA NITROGEN 7 mg/dL (7-18); CALCIUM 8.4 mg/dL (8.5-10.1); CARBON DIOXIDE 24.8 mmol/L (21-32); CHLORIDE 104 mmol/L (98-107); COR CA(FOR HYPOALB) 9.5 mg/dL (8.5-10.1); COR NA(FOR HYPERGLY) 140 mmol/L (136-145); CREATININE 0.69 mg/dL (0.55-1.02); GLUCOSE 153 mg/dL (65-99); MAGNESIUM 2.1 mg/dL (2.0-2.9); SODIUM 139 mmol/L (136-145); eGFR NON BLACK RACES > 60 (>60)
[2023-08-29 07:12] LABS: PLATELET MORPHOLOGY COMMENT NORMAL (NORMAL)
[2023-08-29] MEDS ORDERED: REQUIP PO PRN (08:55)
[2023-08-29] MEDS ORDERED: PROTONIX INJ 40 MG VIAL IVP SCH (09:00)
[2023-08-29] MEDS: DUONEB 0.5 MG/3 MG (3 mL) NEB SCH ×4 (09:06→20:00)
[2023-08-29] MEDS: PULMICORT NEB TX 0.5 MG NEB SCH ×2 (09:07→20:00)
[2023-08-29] MEDS: ROBITUSSIN DM PO SCH ×4 (09:08→20:44)
[2023-08-29] MEDS: ROCEPHIN VIAL 1 GRAM 1 G in NS 100 ML IV 100 ML IV SCH (09:09)
[2023-08-29] MEDS: ZITHROMAX INJ 500 MG VIAL 500 MG in D5W 250 ML IV 250 ML IV SCH (10:57)
[2023-08-29] MEDS: PEPCID TAB 40 MG PO SCH (10:57)
[2023-08-29] MEDS: PriLOSEC PO SCH ×2 (10:57→20:44)
[2023-08-29] MEDS: NEURONTIN CAP 300 MG PO SCH ×2 (14:19→21:14)
[2023-08-29] MEDS: NORCO 5/325 MG TAB PO PRN (21:14)
[2023-08-30] MEDS: NS 1,000 ML IV 1,000 ML IV SCH ×2 (04:03→12:54)
[2023-08-30] MEDS: NEURONTIN CAP 300 MG PO SCH ×3 (05:37→21:07)
[2023-08-30] MEDS: SOLU-Medrol 40 MG VIAL IVP SCH ×3 (05:37→21:07)
[2023-08-30 06:22] LABS: BASOPHILS % (AUTO) 0.1 % (0.2-1.0); HEMOGLOBIN 11.9 g/dL (12.0-16.0); LYMPHOCYTES # (AUTO) 1.7 X10^3/uL (1.3-2.9); LYMPHOCYTES % (AUTO) 8.1 % (21.0-51.0); MEAN CORPUSCULAR HEMOGLOBIN 29.3 pg (27.0-34.0); MEAN CORPUSCULAR HGB CONC 32.9 g/dL (33.0-35.0); MEAN PLATELET VOLUME 7.3 fL (7.4-11.0); MONOCYTES # (AUTO) 1.2 x10^3/uL (0.3-0.8); MONOCYTES % (AUTO) 5.6 % (0.0-13.0); NEUTROPHILS # (AUTO) 18.4 x10^3/uL (2.2-4.8); NEUTROPHILS % (AUTO) 86.2 % (42.0-75.0); PLATELET COUNT 395 X10^3/uL (150.0-450.0); RED BLOOD COUNT 4.05 X10^6/uL (3.5-5.4); RED CELL DISTRIBUTION WIDTH 13.6 % (11.6-16.5); WHITE BLOOD COUNT 21.4 X10^3/uL (3.6-10.0)
[2023-08-30 06:47] LABS: ALANINE AMINOTRANSFERASE 26 Units/L (12-78); ALBUMIN 2.4 g/dL (3.4-5.0); ALKALINE PHOSPHATASE 79 Units/L (46-116); ASPARTATE AMINO TRANSFERASE 15 Units/L (15-37); BLOOD UREA NITROGEN 8 mg/dL (7-18); CALCIUM 8.3 mg/dL (8.5-10.1); CARBON DIOXIDE 25.3 mmol/L (21-32); CHLORIDE 107 mmol/L (98-107); COR CA(FOR HYPOALB) 9.6 mg/dL (8.5-10.1); COR NA(FOR HYPERGLY) 142 mmol/L (136-145); CREATININE 0.69 mg/dL (0.55-1.02); GLUCOSE 134 mg/dL (65-99); POTASSIUM 4.2 mmol/L (3.5-5.1); SODIUM 141 mmol/L (136-145); TOTAL PROTEIN 6.3 g/dL (6.4-8.2); eGFR NON BLACK RACES > 60 (>60)
[2023-08-30 07:18] LABS: BAND NEUTROPHILS % 9 % (0-10); PLATELET MORPHOLOGY COMMENT NORMAL (NORMAL)
--- NOTE | 2023-08-30 08:14 | RAD ---
EXAM:Portable chestHISTORY:RSV bronchitisCOMPARISON:08/28/2023FINDINGS: Heart size is normal. Rosita are normal. Lung sácnhez are clear. There is a spinal cord stimulator at the midthoracic level. Bony thorax is otherwise unremarkable.IMPRESSION:No significant abnormality identifiedTHIS IS AN ELECTRONICALLY VERIFIED FINAL [id number]/30/2023 8:11 AM - Electronically signed by Luis Moreira MD
[2023-08-30] MEDS: DUONEB 0.5 MG/3 MG (3 mL) NEB SCH ×4 (09:04→21:00)
[2023-08-30] MEDS: PULMICORT NEB TX 0.5 MG NEB SCH ×2 (09:04→21:00)
[2023-08-30] MEDS: ROCEPHIN VIAL 1 GRAM 1 G in NS 100 ML IV 100 ML IV SCH (09:15)
[2023-08-30] MEDS: PEPCID TAB 40 MG PO SCH (09:17)
[2023-08-30] MEDS: PriLOSEC PO SCH ×2 (09:18→20:18)
[2023-08-30] MEDS: ROBITUSSIN DM PO SCH ×4 (09:19→20:18)
[2023-08-30] MEDS ORDERED: TUSSIONEX PENNKINETIC SUSP PO PRN (09:46)
[2023-08-30] MEDS: ZITHROMAX INJ 500 MG VIAL 500 MG in D5W 250 ML IV 250 ML IV SCH (10:44)
[2023-08-30] MEDS: NORCO 5/325 MG TAB PO PRN ×2 (14:11→20:18)
[2023-08-30] MEDS ORDERED: COLACE CAP 100 MG PO PRN (20:35)
[2023-08-31 05:06] LABS: BASOPHILS % (AUTO) 0.2 % (0.2-1.0); HEMATOCRIT 36.6 % (36.0-47.0); HEMOGLOBIN 11.9 g/dL (12.0-16.0); LYMPHOCYTES # (AUTO) 1.8 X10^3/uL (1.3-2.9); LYMPHOCYTES % (AUTO) 9.4 % (21.0-51.0); MEAN CORPUSCULAR HEMOGLOBIN 29.2 pg (27.0-34.0); MEAN CORPUSCULAR HGB CONC 32.5 g/dL (33.0-35.0); MEAN CORPUSCULAR VOLUME 89.9 fL (80.0-100.0); MEAN PLATELET VOLUME 7.7 fL (7.4-11.0); MONOCYTES % (AUTO) 5.4 % (0.0-13.0); NEUTROPHILS # (AUTO) 16.3 x10^3/uL (2.2-4.8); PLATELET COUNT 461 X10^3/uL (150.0-450.0); RED BLOOD COUNT 4.07 X10^6/uL (3.5-5.4); RED CELL DISTRIBUTION WIDTH 13.6 % (11.6-16.5); WHITE BLOOD COUNT 19.2 X10^3/uL (3.6-10.0)
[2023-08-31 05:17] LABS: BAND NEUTROPHILS % 1 % (0-10); PLATELET MORPHOLOGY COMMENT NORMAL (NORMAL)
[2023-08-31 05:20] LABS: ALANINE AMINOTRANSFERASE 29 Units/L (12-78); ALBUMIN 2.3 g/dL (3.4-5.0); ALKALINE PHOSPHATASE 87 Units/L (46-116); ASPARTATE AMINO TRANSFERASE 11 Units/L (15-37); BLOOD UREA NITROGEN 12 mg/dL (7-18); CALCIUM 8.5 mg/dL (8.5-10.1); CARBON DIOXIDE 26.3 mmol/L (21-32); CHLORIDE 106 mmol/L (98-107); COR CA(FOR HYPOALB) 9.9 mg/dL (8.5-10.1); COR NA(FOR HYPERGLY) 143 mmol/L (136-145); CREATININE 0.71 mg/dL (0.55-1.02); GLUCOSE 122 mg/dL (65-99); POTASSIUM 4.1 mmol/L (3.5-5.1); SODIUM 142 mmol/L (136-145); TOTAL PROTEIN 6.2 g/dL (6.4-8.2); eGFR NON BLACK RACES > 60 (>60)
[2023-08-31] MEDS: NEURONTIN CAP 300 MG PO SCH ×3 (05:23→21:40)
[2023-08-31] MEDS: SOLU-Medrol 40 MG VIAL IVP SCH ×3 (05:23→21:40)
[2023-08-31] MEDS: DUONEB 0.5 MG/3 MG (3 mL) NEB SCH ×4 (08:15→20:45)
[2023-08-31] MEDS: PULMICORT NEB TX 0.5 MG NEB SCH ×2 (08:15→20:45)
[2023-08-31] MEDS: NS 1,000 ML IV 1,000 ML IV SCH ×2 (09:00→12:12)
[2023-08-31] MEDS: PriLOSEC PO SCH ×2 (09:01→21:39)
[2023-08-31] MEDS: ROCEPHIN VIAL 1 GRAM 1 G in NS 100 ML IV 100 ML IV SCH (09:02)
[2023-08-31] MEDS: MILK OF MAGNESIA PO SCH ×2 (09:02→21:40)
[2023-08-31] MEDS: PEPCID TAB 40 MG PO SCH (09:02)
[2023-08-31] MEDS: ROBITUSSIN DM PO SCH ×4 (09:02→21:40)
[2023-08-31] MEDS: ZITHROMAX INJ 500 MG VIAL 500 MG in D5W 250 ML IV 250 ML IV SCH (09:30)
--- NOTE | 2023-08-31 10:48 | PCM.PROG ---
Progress Note Progress Note for Day of Date of Exam: 08/31/23 Subjective Subjective: Patient seen at bedside, no acute events overnight. She still has a lot of dry cough. She is currently being treated for RSV and bronchitis. Denies any GI symptoms. She still has right ear pain. Labs/imaging reviewed -Labs Hgb 11.9 WBC 19.2 -CXR: no acute process -Sputum and blood culture: neg Plan: Continue IV Azithro and Rocephin. Continue solumedrol. Continue cipro ear drops. Continue nebs and IS. Continue home medications. Advised patient to ambulate as tolerated. She is currently on room air. Follow AM labs/imaging. Past Medical Family Social History Allergies: Allergies atorvastatin Allergy (Verified 06/20/23 18:33) Sulfa (Sulfonamide Antibiotics) Allergy (Verified 03/02/18 11:36) sulfamethoxazole [From Bactrim] Allergy (Verified 08/11/23 23:58) trimethoprim [From Bactrim] Allergy (Verified 08/11/23 23:58) Vital Signs and I&O's Vital Signs: Vital Signs Temperature 97.9 F Temperature 98.4 F Pulse Rate [Brachial] 86 Pulse Rate [Brachial] 81 Respiratory Rate 18 Respiratory Rate 18 Blood Pressure [Right Arm] 166/79 Blood Pressure [Right Arm] 137/69 O2 Sat by Pulse Oximetry 93 O2 Sat by Pulse Oximetry 96 Intake and Output: Intake & Output 08/28/23 08/29/23 08/30/23 08/31/23 23:59 23:59 23:59 23:59 Intake Total 1816 / 1817 2584 / 2584 3059 / 3059 485 / 485 Balance 181 / 1817 2584 / 2584 3059 / 3059 485 / 485 Physical Exam Oriented: Normal Nose: Normal Throat: Normal Respiratory: Generalized and Diminished Cardiovascular: Normal Auscultation: Bowel Sounds: Normal Palpation: Normal Tenderness: Normal Skin: Normal Musculoskeletal: Normal Psychiatric: Normal Mood Description: Calm Affect: Normal Speech Pattern: Clear Laboratory and Diagnostics 08/31/23 04:09 08/31/23 04:09 Labs: 08/28/23 17:00 Sputum - Expectorated Sputum Sputum Culture - Final 08/28/23 17:00 Sputum - Expectorated Sputum - Final 08/28/23 11:40 Blood Blood Culture - Preliminary 08/28/23 11:35 Blood Blood Culture - Preliminary Laboratory WBC 19.2 X10^3/uL (3.6-10.0) H 08/31/23 04:09 RBC 4.07 X10^6/uL (3.5-5.4) 08/31/23 04:09 Hgb 11.9 g/dL (12.0-16.0) L 08/31/23 04:09 Hct 36.6 % (36.0-47.0) 08/31/23 04:09 MCV 89.9 fL (80.0-100.0) 08/31/23 04:09 MCH 29.2 pg (27.0-34.0) 08/31/23 04:09 MCHC 32.5 g/dL (33.0-35.0) L 08/31/23 04:09 RDW 13.6 % (11.6-16.5) 08/31/23 04:09 Plt Count 461 X10^3/uL (150.0-450.0) H 08/31/23 04:09 Plt Count Comment Adequate (ADEQUATE) 08/31/23 04:09 MPV 7.7 fL (7.4-11.0) 08/31/23 04:09 Neut % (Auto) 85.0 % (42.0-75.0) H 08/31/23 04:09 Lymph % (Auto) 9.4 % (21.0-51.0) L 08/31/23 04:09 [place] % (Auto) 5.4 % (0.0-13.0) 08/31/23 04:09 Eos % (Auto) 0.0 % (0.9-2.9) L 08/31/23 04:09 Baso % (Auto) 0.2 % (0.2-1.0) 08/31/23 04:09 Neut # (Auto) 16.3 x10^3/uL (2.2-4.8) H 08/31/23 04:09 Lymph # (Auto) 1.8 X10^3/uL (1.3-2.9) 08/31/23 04:09 [place] # (Auto) 1.0 x10^3/uL (0.3-0.8) H 08/31/23 04:09 Eos # (Auto) 0.0 x10^3/uL (0.0-0.2) 08/31/23 04:09 Baso # (Auto) 0.0 X10^3/uL (0.0-0.1) 08/31/23 04:09 Absolute Nucleated RBC 0.0 /100WBC 08/31/23 04:09 Total Counted 100 08/31/23 04:09 Neutrophils % (Manual) 90 % (39-76) H 08/31/23 04:09 Band Neutrophils % 1 % (0-10) 08/31/23 04:09 Lymphocytes % (Manual) 6 % (13-43) L 08/31/23 04:09 Monocytes % (Manual) 3 % (4-9) L 08/31/23 04:09 Plt Morphology Comment Normal (NORMAL) 08/31/23 04:09 RBC Morphology Normal (NORMAL) 08/31/23 04:09 Sodium 142 mmol/L (136-145) 08/31/23 04:09 Corrected Sodium 143 mmol/L (136-145) 08/31/23 04:09 Potassium 4.1 mmol/L (3.5-5.1) 08/31/23 04:09 Chloride 106 mmol/L (98-107) 08/31/23 04:09 Carbon Dioxide 26.3 mmol/L (21-32) 08/31/23 04:09 BUN 12 mg/dL (7-18) 08/31/23 04:09 Creatinine 0.71 mg/dL (0.55-1.02) 08/31/23 04:09 Est GFR (MDRD) Af Amer > 60 (>60) 08/31/23 04:09 Est GFR (MDRD) Non-Af > 60 (>60) 08/31/23 04:09 Glucose 122 mg/dL (65-99) H 08/31/23 04:09 Calcium 8.5 mg/dL (8.5-10.1) 08/31/23 04:09 Corrected Calcium 9.9 mg/dL (8.5-10.1) 08/31/23 04:09 Magnesium 2.1 mg/dL (2.0-2.9) 08/29/23 05:49 Total Bilirubin 0.10 mg/dL (0.2-1.0) L 08/31/23 04:09 AST 11 Units/L (15-37) L 08/31/23 04:09 ALT 29 Units/L (12-78) 08/31/23 04:09 Alkaline Phosphatase 87 Units/L (46-116) 08/31/23 04:09 Total Protein 6.2 g/dL (6.4-8.2) L 08/31/23 04:09 Albumin 2.3 g/dL (3.4-5.0) L 08/31/23 04:09 Globulin 3.9 g/dL (2.5-4.5) 08/31/23 04:09 Albumin/Globulin Ratio 0.6 Ratio (1.1-2.1) L 08/31/23 04:09 SARS-CoV-2 (PCR) Negative (NEGATIVE) 08/28/23 11:20 Influenza Type A (PCR) Negative (NEGATIVE) 08/28/23 11:20 Influenza Type B (PCR) Negative (NEGATIVE) 08/28/23 11:20 RSV (PCR) Positive (NEGATIVE) A 08/28/23 11:20 Resp Viral Panel (PCR) See scanned report 08/28/23 13:56 Plan (1) Bronchitis: Status: Acute (2) RSV (acute bronchiolitis due to respiratory syncytial virus): Status: Acute (3) Right otitis media with spontaneous rupture of eardrum: Status: Acute (4) Hypertension: Status: Chronic Qualifiers: Hypertension type: primary hypertension Qualified Code(s): I10 - Essential (primary) hypertension (5) GERD (gastroesophageal reflux disease): Status: Chronic Qualifiers: Esophagitis presence: esophagitis presence not specified Qualified Code(s): K21.9 - Gastro-esophageal reflux disease without esophagitis
[2023-08-31] MEDS: NORCO 5/325 MG TAB PO PRN (12:11)
[2023-09-01] MEDS: NS 1,000 ML IV 1,000 ML IV SCH (01:23)
[2023-09-01 05:14] LABS: BASOPHILS # (AUTO) 0.1 X10^3/uL (0.0-0.1); BASOPHILS % (AUTO) 0.3 % (0.2-1.0); HEMATOCRIT 37.4 % (36.0-47.0); HEMOGLOBIN 12.3 g/dL (12.0-16.0); LYMPHOCYTES # (AUTO) 2.1 X10^3/uL (1.3-2.9); LYMPHOCYTES % (AUTO) 12.4 % (21.0-51.0); MEAN CORPUSCULAR HEMOGLOBIN 29.4 pg (27.0-34.0); MEAN CORPUSCULAR HGB CONC 32.8 g/dL (33.0-35.0); MEAN CORPUSCULAR VOLUME 89.5 fL (80.0-100.0); MEAN PLATELET VOLUME 7.5 fL (7.4-11.0); MONOCYTES % (AUTO) 6.1 % (0.0-13.0); NEUTROPHILS # (AUTO) 13.6 x10^3/uL (2.2-4.8); NEUTROPHILS % (AUTO) 81.2 % (42.0-75.0); PLATELET COUNT 493 X10^3/uL (150.0-450.0); RED BLOOD COUNT 4.19 X10^6/uL (3.5-5.4); RED CELL DISTRIBUTION WIDTH 13.6 % (11.6-16.5); WHITE BLOOD COUNT 16.7 X10^3/uL (3.6-10.0)
[2023-09-01] MEDS: NEURONTIN CAP 300 MG PO SCH (05:25)
[2023-09-01] MEDS: SOLU-Medrol 40 MG VIAL IVP SCH (05:25)
[2023-09-01 05:26] LABS: ALANINE AMINOTRANSFERASE 46 Units/L (12-78); ALBUMIN 2.3 g/dL (3.4-5.0); ALKALINE PHOSPHATASE 80 Units/L (46-116); ASPARTATE AMINO TRANSFERASE 22 Units/L (15-37); BLOOD UREA NITROGEN 11 mg/dL (7-18); CALCIUM 8.4 mg/dL (8.5-10.1); CARBON DIOXIDE 30.1 mmol/L (21-32); CHLORIDE 107 mmol/L (98-107); COR CA(FOR HYPOALB) 9.8 mg/dL (8.5-10.1); COR NA(FOR HYPERGLY) 142 mmol/L (136-145); CREATININE 0.71 mg/dL (0.55-1.02); GLUCOSE 113 mg/dL (65-99); POTASSIUM 4.7 mmol/L (3.5-5.1); SODIUM 142 mmol/L (136-145); TOTAL PROTEIN 5.9 g/dL (6.4-8.2); eGFR NON BLACK RACES > 60 (>60)
[2023-09-01 06:03] LABS: BAND NEUTROPHILS % 3 % (0-10); METAMYELOCYTES % 1; PLATELET MORPHOLOGY COMMENT NORMAL (NORMAL); TARGET CELLS SLIGHT
[2023-09-01] MEDS: DUONEB 0.5 MG/3 MG (3 mL) NEB SCH (08:57)
[2023-09-01] MEDS: PULMICORT NEB TX 0.5 MG NEB SCH (08:57)
[2023-09-01] MEDS: PEPCID TAB 40 MG PO SCH (09:33)
[2023-09-01] MEDS: ROCEPHIN VIAL 1 GRAM 1 G in NS 100 ML IV 100 ML IV SCH (09:33)
[2023-09-01] MEDS: PriLOSEC PO SCH (09:33)
[2023-09-01] MEDS: MILK OF MAGNESIA PO SCH (09:33)
[2023-09-01] MEDS: ROBITUSSIN DM PO SCH (09:33)
[2023-09-01] MEDS: ZITHROMAX INJ 500 MG VIAL 500 MG in D5W 250 ML IV 250 ML IV SCH (10:03)
[2023-09-01 13:05] VITALS: BP 144/78; PULSE 60; RESP 20; TEMP 97.6; O2SAT 96
--- NOTE | 2023-09-06 13:39 | W.DIS.FURT ---
Summary of Discharge Discharge Summary of Date Date of Exam: 09/01/23 Admission Date Date of Admission: 08/29/23 Admission Diagnosis Hospital Course: Ms. Rodriguez is a 53-year-old female with past medical history of GERD, neuropathy was directly admitted from Dr. Bonilla's office with fever, cough and RSV infection. She was also found to have acute ruptured right tympanic membrane. She was started on IV antibiotics, fluids, steroids and nebs. Her labs were monitored daily and electrolytes replaced as needed. Her symptoms improved and she was ambulating as tolerated. Her cultures were negative. She was stable for discharge home with p.o. antibiotics and prednisone. She will continue using Ciprodex eardrops. She has a follow-up with ENT. She will follow-up with primary care as scheduled. Vital Signs: Vital Signs (72 hours) 08/29/23 10:58 08/29/23 12:00 08/29/23 16:00 Temperature 98.0 F 98.5 F Pulse Rate Pulse Rate [Brachial] 114 H 105 H Respiratory Rate 20 20 Blood Pressure [Right Arm] 105/59 109/59 O2 Sat by Pulse Oximetry 97 97 Oxygen Delivery Method Room Air Room Air Room Air 08/29/23 20:00 08/29/23 21:14 08/29/23 20:00 Temperature 98.7 F Pulse Rate 117 H Pulse Rate [Brachial] 115 H Respiratory Rate 20 18 Blood Pressure [Right Arm] 119/61 O2 Sat by Pulse Oximetry 97 93 L Oxygen Delivery Method Room Air 08/29/23 22:14 08/29/23 19:00 08/30/23 00:00 Temperature 98 F Pulse Rate Pulse Rate [Brachial] 105 H Respiratory Rate 20 18 Blood Pressure [Right Arm] 115/60 O2 Sat by Pulse Oximetry 96 Oxygen Delivery Method Room Air Room Air 08/30/23 04:00 08/30/23 09:04 08/30/23 10:15 Temperature 98.2 F Pulse Rate Pulse Rate [Brachial] 78 Respiratory Rate 18 Blood Pressure [Right Arm] 130/61 O2 Sat by Pulse Oximetry 95 Oxygen Delivery Method Room Air Room Air Room Air 08/30/23 08:00 08/30/23 12:00 08/30/23 14:11 Temperature 98.1 F 98.2 F Pulse Rate Pulse Rate [Brachial] 82 95 H Respiratory Rate 20 18 20 Blood Pressure [Right Arm] 125/62 124/60 O2 Sat by Pulse Oximetry 96 97 Oxygen Delivery Method Room Air Room Air 08/30/23 15:11 08/30/23 16:00 08/30/23 20:18 Temperature 98.1 F Pulse Rate Pulse Rate [Brachial] 96 H Respiratory Rate 20 20 18 Blood Pressure [Right Arm] 113/56 O2 Sat by Pulse Oximetry 96 Oxygen Delivery Method Room Air 08/30/23 20:00 08/30/23 19:00 08/30/23 21:18 Temperature 98.1 F Pulse Rate Pulse Rate [Brachial] 96 H Respiratory Rate 18 18 Blood Pressure [Right Arm] 118/59 O2 Sat by Pulse Oximetry 95 Oxygen Delivery Method Room Air Room Air 08/31/23 00:00 08/30/23 21:00 08/31/23 04:00 Temperature 98.4 F 98.4 F Pulse Rate 91 H Pulse Rate [Brachial] 84 81 Respiratory Rate 18 18 Blood Pressure [Right Arm] 121/63 137/69 O2 Sat by Pulse Oximetry 96 96 96 Oxygen Delivery Method Room Air Room Air 08/31/23 08:00 08/31/23 07:00 08/31/23 08:15 Temperature 97.9 F Pulse Rate Pulse Rate [Brachial] 86 Respiratory Rate 18 Blood Pressure [Right Arm] 166/79 O2 Sat by Pulse Oximetry 93 L Oxygen Delivery Method Room Air Room Air Room Air 08/31/23 08:15 08/31/23 12:11 08/31/23 12:00 Temperature 97.9 F Pulse Rate 96 H Pulse Rate [Brachial] 82 Respiratory Rate 18 18 Blood Pressure [Right Arm] 132/72 O2 Sat by Pulse Oximetry 96 94 L Oxygen Delivery Method Room Air 08/31/23 13:11 08/31/23 16:00 08/31/23 19:00 Temperature 97.9 F Pulse Rate Pulse Rate [Brachial] 82 Respiratory Rate 18 20 Blood Pressure [Right Arm] 133/74 O2 Sat by Pulse Oximetry 96 Oxygen Delivery Method Room Air Room Air 08/31/23 20:00 09/01/23 00:00 09/01/23 04:10 Temperature 97.9 F 98 F Pulse Rate 51 L Pulse Rate [Brachial] 78 69 Respiratory Rate 18 18 Blood Pressure [Right Arm] 137/76 146/75 O2 Sat by Pulse Oximetry 98 99 97 Oxygen Delivery Method Room Air Room Air 09/01/23 04:00 09/01/23 04:00 09/01/23 07:00 Temperature 98.1 F 98.1 F Pulse Rate Pulse Rate [Brachial] 61 61 Respiratory Rate 18 18 Blood Pressure [Right Arm] 128/63 128/63 O2 Sat by Pulse Oximetry 96 96 Oxygen Delivery Method Room Air Room Air Room Air 09/01/23 08:58 Temperature Pulse Rate 88 Pulse Rate [Brachial] Respiratory Rate Blood Pressure [Right Arm] O2 Sat by Pulse Oximetry 98 Oxygen Delivery Method Labs: Laboratory Last Values WBC 16.7 X10^3/uL (3.6-10.0) H 09/01/23 04:09 RBC 4.19 X10^6/uL (3.5-5.4) 09/01/23 04:09 Hgb 12.3 g/dL (12.0-16.0) 09/01/23 04:09 Hct 37.4 % (36.0-47.0) 09/01/23 04:09 MCV 89.5 fL (80.0-100.0) 09/01/23 04:09 MCH 29.4 pg (27.0-34.0) 09/01/23 04:09 MCHC 32.8 g/dL (33.0-35.0) L 09/01/23 04:09 RDW 13.6 % (11.6-16.5) 09/01/23 04:09 Plt Count 493 X10^3/uL (150.0-450.0) H 09/01/23 04:09 Plt Count Comment Increased (ADEQUATE) A 09/01/23 04:09 MPV 7.5 fL (7.4-11.0) 09/01/23 04:09 Neut % (Auto) 81.2 % (42.0-75.0) H 09/01/23 04:09 Lymph % (Auto) 12.4 % (21.0-51.0) L 09/01/23 04:09 [place] % (Auto) 6.1 % (0.0-13.0) 09/01/23 04:09 Eos % (Auto) 0.0 % (0.9-2.9) L 09/01/23 04:09 Baso % (Auto) 0.3 % (0.2-1.0) 09/01/23 04:09 Neut # (Auto) 13.6 x10^3/uL (2.2-4.8) H 09/01/23 04:09 Lymph # (Auto) 2.1 X10^3/uL (1.3-2.9) 09/01/23 04:09 [place] # (Auto) 1.0 x10^3/uL (0.3-0.8) H 09/01/23 04:09 Eos # (Auto) 0.0 x10^3/uL (0.0-0.2) 09/01/23 04:09 Baso # (Auto) 0.1 X10^3/uL (0.0-0.1) 09/01/23 04:09 Absolute Nucleated RBC 0.0 /100WBC 09/01/23 04:09 Total Counted 100 09/01/23 04:09 Neutrophils % (Manual) 71 % (39-76) 09/01/23 04:09 Band Neutrophils % 3 % (0-10) 09/01/23 04:09 Lymphocytes % (Manual) 17 % (13-43) 09/01/23 04:09 Monocytes % (Manual) 8 % (4-9) 09/01/23 04:09 Metamyelocytes % 1 09/01/23 04:09 Plt Morphology Comment Normal (NORMAL) 09/01/23 04:09 RBC Morphology Abnormal (NORMAL) A 09/01/23 04:09 Target Cells Slight A 09/01/23 04:09 Sodium 142 mmol/L (136-145) 09/01/23 04:09 Corrected Sodium 142 mmol/L (136-145) 09/01/23 04:09 Potassium 4.7 mmol/L (3.5-5.1) 09/01/23 04:09 Chloride 107 mmol/L (98-107) 09/01/23 04:09 Carbon Dioxide 30.1 mmol/L (21-32) 09/01/23 04:09 BUN 11 mg/dL (7-18) 09/01/23 04:09 Creatinine 0.71 mg/dL (0.55-1.02) 09/01/23 04:09 Est GFR (MDRD) Af Amer > 60 (>60) 09/01/23 04:09 Est GFR (MDRD) Non-Af > 60 (>60) 09/01/23 04:09 Glucose 113 mg/dL (65-99) H 09/01/23 04:09 Calcium 8.4 mg/dL (8.5-10.1) L 09/01/23 04:09 Corrected Calcium 9.8 mg/dL (8.5-10.1) 09/01/23 04:09 Magnesium 2.1 mg/dL (2.0-2.9) 08/29/23 05:49 Total Bilirubin 0.20 mg/dL (0.2-1.0) 09/01/23 04:09 AST 22 Units/L (15-37) 09/01/23 04:09 ALT 46 Units/L (12-78) 09/01/23 04:09 Alkaline Phosphatase 80 Units/L (46-116) 09/01/23 04:09 Total Protein 5.9 g/dL (6.4-8.2) L 09/01/23 04:09 Albumin 2.3 g/dL (3.4-5.0) L 09/01/23 04:09 Globulin 3.6 g/dL (2.5-4.5) 09/01/23 04:09 Albumin/Globulin Ratio 0.6 Ratio (1.1-2.1) L 09/01/23 04:09 SARS-CoV-2 (PCR) Negative (NEGATIVE) 08/28/23 11:20 Influenza Type A (PCR) Negative (NEGATIVE) 08/28/23 11:20 Influenza Type B (PCR) Negative (NEGATIVE) 08/28/23 11:20 RSV (PCR) Positive (NEGATIVE) A 08/28/23 11:20 Resp Viral Panel (PCR) See scanned report 08/28/23 13:56 Reason For Visit: BRONCHITIS, RSV, PERFORATED RIGHT TM Discharge Diagnosis All Active Problems (Updated 08/31/23 @ 10:47 by Aide Lara) Right otitis media with spontaneous rupture of eardrum (Acute) RSV (acute bronchiolitis due to respiratory syncytial virus) (Acute) Bronchitis (Acute) Hyperlipidemia (Chronic) Hypertension (Chronic) GERD (gastroesophageal reflux disease) (Chronic) Restless legs syndrome (RLS) (Chronic) Anxiety (Chronic) Depression (Chronic) Chest pain (Acute) Syncope (Acute) Medication reaction (Acute) Psoriasis (Acute) Cellulitis (Acute) Chest pain, atypical (Acute) Chest wall tenderness (Acute) COVID-19 (Acute) Non-cardiac chest pain (Acute) Vomiting (Acute) Medication reaction (Acute) Adverse reaction to statin medication (Acute) Shortness of breath (Acute) Allergic reaction (Acute) Angio-edema (Acute) Contact dermatitis (Acute) Atopic dermatitis (Acute) Anaphylactic reaction (Acute) Plan of Treatment: Continue with present treatment and follow up plan. Pt is to keep follow up appointment as instructed and take medications as ordered. Discharge Medications Discharge Medications: atorvastatin Allergy (Verified 06/20/23 18:33) Sulfa (Sulfonamide Antibiotics) Allergy (Verified 03/02/18 11:36) sulfamethoxazole [From Bactrim] Allergy (Verified 08/11/23 23:58) trimethoprim [From Bactrim] Allergy (Verified 08/11/23 23:58) CONTINUE taking the following medications famotidine 40 mg tablet 40 mg PO QDAY 08/28/23 [History] gabapentin 300 mg capsule 300 mg PO TID 08/28/23 [History] omeprazole 20 mg capsule,delayed release 20 mg PO BID 08/28/23 [History] ropinirole 1 mg tablet 2 mg PO QPM PRN 08/28/23 [History] New Prescriptions azithromycin 250 mg tablet 250 mg PO QDAY 3 days #3 tabs 09/01/23 [Rx] ciprofloxacin 0.3 %-dexamethasone 0.1 % ear drops,suspension 4 drp otic (ear) BID 5 days #7.5 mL 09/01/23 [Rx] dextromethorphan-guaifenesin 10 mg-100 mg/5 mL oral syrup 10 ml PO QID 10 days #400 mL 09/01/23 [Rx] ipratropium 0.5 mg-albuterol 3 mg (2.5 mg base)/3 mL nebulization soln 3 ml NEB QID 10 days #30 ea 09/01/23 [Rx] prednisone 20 mg tablet 20 mg PO QDAY 3 days #3 tabs 09/01/23 [Rx] Discharge Disposition Discharge Disposition: To home Discharge Condition: Stable Discharge Plan Discharge Plan Hospital Course: Ms. Rodriguez is a 53-year-old female with past medical history of GERD, neuropathy was directly admitted from Dr. Bonilla's office with fever, cough and RSV infection. She was also found to have acute ruptured right tympanic membrane. She was started on IV antibiotics, fluids, steroids and nebs. Her labs were monitored daily and electrolytes replaced as needed. Her symptoms improved and she was ambulating as tolerated. Her cultures were negative. She was stable for discharge home with p.o. antibiotics and prednisone. She will continue using Ciprodex eardrops. She has a follow-up with ENT. She will follow-up with primary care as scheduled. Patient Disposition: 01 HOME, SELF-CARE Condition: Stable Health Concerns: Post Hospitalization: new medications and changes needed to prevent readmission or further decline. Pt educated and given instructions on all concerns. Care Plan Goals: Problem: Pain/Alteration in Comfort Goal: Improve/ Resolve Pain; Achieve Pain Tolerance Instructions: Take pain medications as prescribed. Contact your primary care provider if your pain is unrelieved or worsens. Follow up with primary care provider as directed. Plan of Treatment: Continue with present treatment and follow up plan. Pt is to keep follow up appointment as instructed and take medications as ordered. Prescription drug monitoring program results: PDMP reviewed and no concerns identified Prescriptions: New ipratropium-albuterol 0.5 mg-3 mg(2.5 mg base)/3 mL Solution For Nebulization 3 ml NEB QID 10 Days Qty: 30 1RF dextromethorphan-guaifenesin 10-100 mg/5 mL Syrup 10 ml PO QID 10 Days Qty: 400 0RF Continued ropinirole 1 mg tablet 2 mg PO QPM PRN famotidine 40 mg tablet 40 mg PO QDAY gabapentin 300 mg capsule 300 mg PO TID omeprazole 20 mg capsule,delayed release(DR/EC) 20 mg PO BID Follow ups/Referrals Follow ups/Referrals: DIRK NGUYEN [Primary Care Provider] - 1 WEEK Instructions Instructions: How to Take Your Blood Pressure, [id number], Upper Respiratory Infection, Adult, Acute Bronchitis, Adult, [id number], Managing Your Hypertension, Steps to Quit Smoking Stand Alone Forms: Excuse From Work or School, Post Hospital Follow Up Care
== END 2023-09-01 13:15 | disposition home or self-care (01) | DRG 203 ==
LOC: MED/SURG 10:53
PROVIDERS: ADMIT Internal Medicine; ATTEND Internal Medicine
DX: G25.81 Restless legs syndrome; H66.91 Otitis media, unspecified, right ear; K21.9 Gastro-esophageal reflux disease without esophagitis; I10 Essential (primary) hypertension; J44.9 Chronic obstructive pulmonary disease, unspecified; B95.3 Streptococcus pneumoniae as the cause of diseases classified elsewhere; H72.91 Unspecified perforation of tympanic membrane, right ear; J21.0 Acute bronchiolitis due to respiratory syncytial virus

== ENCOUNTER 2025-09-26 10:56 | Observation (INO) ==
[2025-09-26] MEDS ORDERED: TUSSIONEX PENNKINETIC SUSP PO PRN (12:16)
--- NOTE | 2025-09-26 12:25 | DR.H&P ---
H&P History & Physical for Day of: H&P Date: 09/26/25 Chief Complaint Chief Complaint: ccc, sob History of Present Illness History of Present Illness: PT IS 55 WF, DIRECT ADMIT FROM DR HOLT OFFICE WITH CCC, SOB AND WHEEZING FOR OVER A WEEK. PT STATES HER SPOUSE WAS SICK FIRST THEN SHE STARTED WITH FEVER AND FLU LIKE SYMPTOMS. PT WAS NEGATIVE FOR INFLUENZA AND COVID IN THE OFFICE. PT WAS GIVEN ROCEPHIN 1GM IM X 2 DOSES, PO STEROIDS AND USING BREATHING TREATMENTS WITH CONTINUED COUGH AND SOB. PT ADMITTED FOR EVALUATION AND TREATMENT OF ACUTE ILLNESS Past Medical History Past Medical History: Arthritis, COPD, Dyslipidemia and GERD Past Surgical History Surgical History: Cholecystectomy, Hysterectomy and Ortho Surgery Family History Family Medical History: Diabetes Mellitus, Cancer, NE, Coronary Artery Disease and Hypertension Medications Home Medications: Home Medications Medication Instructions Recorded Confirmed Type famotidine 40 mg tablet 40 mg PO QDAY 08/28/2307/07 History gabapentin 300 mg capsule 300 mg PO TID 08/28/2307/07 History levocetirizine 5 mg tablet 5 - 10 mg PO QPM 07/02/25 0 07/02/25 History trazodone 150 mg tablet 150 mg PO QPM 07/02/2507/02 History albuterol sulfate 90 mcg/actuation 2 puff inhalation Q 6H PRN dyspnea 07/07/25 07/07/25 History aerosol inhaler aspirin 81 mg tablet 81 mg PO QDAY 07/07/2507/07 History ergocalciferol (vitamin D2) 1,250 1,250 mcg PO QWEEK 0 07/07/25 07/07/25 History mcg (50,000 unit) capsule esomeprazole magnesium 40 mg 40 mg PO QDAY 07/07/25 History capsule,delayed release loratadine 10 mg tablet 10 - 20 mg PO QDAY 07/07/25 07/07/25 History ropinirole 1 mg tablet 1 mg PO BID PRN 07/07/25 History tolterodine 4 mg capsule,extended 4 mg PO QDAY 5 07/07/25 History release 24 hr budesonide 160 mcg-glycopyr 9 2 inh inhalation BID 09/26/25 History mcg-formot 4.8 mcg/actuation HFA inhaler (BrezEchodio) ergocalciferol (vitamin D2) 1,250 1,250 mcg PO QWEEK 1 11/27/24 09/26/25 History mcg (50,000 unit) capsule esomeprazole magnesium 40 mg 40 mg PO QDAY 09/26/25 History capsule,delayed release famotidine 40 mg tablet 40 mg PO BID 09/26/25 History gabapentin 300 mg capsule 300 mg PO TID 09/26/2509/26 History levocetirizine 5 mg tablet 5 - 10 mg PO QPM 09/26/25 1 11/27/24 History loratadine 10 mg tablet 10 - 20 mg PO QDAY 09/26/25 09/26/25 History omeprazole 20 mg capsule,delayed 20 mg PO BID 09/26/25 09/26/25 History release prednisone 10 mg tablet mg PO 09/26/25 History ropinirole 2 mg tablet 2 mg PO TID 09/26/25 5 History tolterodine 4 mg capsule,extended 4 mg PO QDAY 5 09/26/25 History release 24 hr trazodone 150 mg tablet 150 mg PO QPM 09/26/2509/26 History Allergies Allergies Allergy/AdvReac Type Severity Reaction Status Date / Time atorvastatin Allergy Verified 09/26/25 12:28 Sulfa (Sulfonamide Allergy Verified 09/26/25 12:28 Antibiotics) sulfamethoxazole (From Allergy Verified 09/26/25 12:28 Bactrim) trimethoprim (From Bactrim) Allergy Verified 09/26/25 12:28 Review of Systems Constitutional: Fever, Chills, Weakness and Malaise Eyes: No Symptoms Reported ENT: Nose Congestion Respiratory: Cough, SOB with Excertion, Sputum and Wheezing Cardiovascular: No Symptoms Reported Gastrointestinal: Nausea Genitourinary: No Symptoms Reported Musculoskeletal: Back Pain Skin: No Symptoms Reported Neurological: Other (TEJEDA) Oriented: Normal Eyes: Normal Ear: Normal Nose: Discharge Throat: Red and Dry Respiratory: Wheezes Throughout, RLL Diminished and LLL Diminished Cardiovascular: Normal Palpation: Normal Tenderness: Normal Skin: Decreased Turgur Musculoskeletal: Back:Lumbar Psychiatric: Anxiety Mood Description: Depressed Affect: Anxious and Depressed Speech Pattern: Clear and Appropriate Assessment/Plan (1) Acute bronchitis with COPD: Status: Acute Plan: ADMIT, IV HYDRATION IV ATBX, SOLU MEDROL TO START ON 09/27 CXR AND ABG ON ADMISSION DUO NEBS AND SPUTUM CULTURE VERIFY AND RESUME HOME MEDICATIONS (2) Hyperlipidemia: Status: Chronic (3) GERD (gastroesophageal reflux disease): Qualifiers: Esophagitis presence: esophagitis presence not specified Qualified Code(s): K21.9 - Gastro-esophageal reflux disease without esophagitis Status: Chronic (4) Depression: Status: Chronic
[2025-09-26 12:42] LABS: MEAN PLATELET VOLUME 7.3 fL (7.4-11.0); RED CELL DISTRIBUTION WIDTH 13.6 % (11.6-16.5)
[2025-09-26 12:53] LABS: CREATININE 0.69 mg/dL (0.55-1.02); eGFR NON BLACK RACES > 60 (>60)
[2025-09-26 12:59] VITALS: BMI 38.2
[2025-09-26] MEDS: DUONEB 0.5 MG/3 MG (3 mL) NEB SCH (13:13)
[2025-09-26] MEDS: ZITHROMAX INJ 500 MG VIAL 500 MG in D5W 250 ML IV 250 ML IV SCH (13:18)
[2025-09-26] MEDS: NS 1,000 ML IV 1,000 ML IV SCH (13:18)
[2025-09-26] MEDS: ROBITUSSIN DM PO SCH (13:18)
[2025-09-26] MEDS: NEURONTIN CAP 300 MG PO SCH (13:18)
[2025-09-26 13:22] LABS: ABG ALLEN TEST POS; ABG BASE EXCESS 1.5 mmol/L (-2.0-2.0); ABG HCO3 25.9 mmol/L (22-26); ABG OXYGEN SATURATION 92.0 % (90-100); ABG PCO2 39.0 mmHg (35.0-45.0); ABG PH 7.430 (7.35-7.45); ABG PO2 62.0 mmHg (80.0-100.0)
--- NOTE | 2025-09-26 15:31 | RAD ---
EXAM: CHEST, PA/LAT ADULT HISTORY: sob, ab; COMPARISON: 08/30/2023 TECHNIQUE: PA and lateral FINDINGS: Unremarkable cardiac silhouette. No focal consolidation, pleural effusion, or pneumothorax. IMPRESSION: No acute cardiopulmonary findings. THIS IS AN ELECTRONICALLY VERIFIED FINAL REPORT 09/26/2025 3:28 PM - Electronically signed by Rajan Serrano MD
[2025-09-26 15:41] LABS: BLOOD/HEMOGLOBIN,URINE NEGATIVE (NEGATIVE); LEUKOCYTE ESTERASE ,URINE NEGATIVE (NEGATIVE); NITRITES,URINE NEGATIVE (NEGATIVE)
[2025-09-26 15:51] LABS: APPEARANCE,URINE CLEAR (CLEAR)
[2025-09-26] MEDS: PULMICORT NEB TX 0.5 MG NEB SCH (20:09)
[2025-09-26] MEDS: DESYREL PO SCH (21:01)
[2025-09-26] MEDS: REQUIP PO SCH (21:01)
[2025-09-27 04:11] VITALS: TEMP 98
[2025-09-27 05:44] LABS: MEAN PLATELET VOLUME 7.9 fL (7.4-11.0); RED CELL DISTRIBUTION WIDTH 13.7 % (11.6-16.5)
[2025-09-27 05:58] LABS: COR CA(FOR HYPOALB) 8.9 mg/dL (8.5-10.1); CREATININE 0.68 mg/dL (0.55-1.02); eGFR NON BLACK RACES > 60 (>60)
[2025-09-27] MEDS: K-DUR TAB 20 MEQ PO ONE (09:05)
[2025-09-27] MEDS: PULMICORT NEB TX 0.5 MG NEB ONE (09:14)
[2025-09-27] MEDS: CONSULT PHARMACY - POTASSIUM & MAGNESIUM XX SCH (09:14)
[2025-09-27 10:32] VITALS: BP 141/72; PULSE 89; RESP 47; O2SAT 94
[2025-09-28] MEDS ORDERED: PREDNISONE TAB 10 MG PO SCH (09:00)
== END 2025-09-27 12:05 | disposition home or self-care (01) ==
LOC: ICU
PROVIDERS: ADMIT Internal Medicine; ATTEND Internal Medicine
DX: K21.9 Gastro-esophageal reflux disease without esophagitis; Z79.899 Other long term (current) drug therapy; J44.1 Chronic obstructive pulmonary disease with (acute) exacerbation; Z03.818 Encounter for observation for suspected exposure to other biological agents ruled out; E87.6 Hypokalemia; J44.0 Chronic obstructive pulmonary disease with (acute) lower respiratory infection; F32.89 Other specified depressive episodes; E83.51 Hypocalcemia; Z72.0 Tobacco use; M19.90 Unspecified osteoarthritis, unspecified site; R79.89 Other specified abnormal findings of blood chemistry; E78.5 Hyperlipidemia, unspecified; J20.8 Acute bronchitis due to other specified organisms; R06.02 Shortness of breath